=== PATIENT | male | born 1960 | race Caucasian/White ===

== ENCOUNTER 2020-12-23 18:21 | Inpatient (IN) ==
[2020-12-23] MEDS ORDERED: NOREPINEPHRINE/D5W 8 MG/508 ML IV ONE (18:36)
[2020-12-23] MEDS: Standard Conc 16mcg/mL; 8mg in 500mL IV SCH (18:42)
[2020-12-23] MEDS ORDERED: SODIUM CHLORIDE 0.9% 1000ML 1,000 ML IV SCH ×2 (18:45)
[2020-12-23 18:50] LABS: iSTAT Creatinine 1.3 mg/dl (0.6-1.3); iSTAT Hemoglobin 17.7 g/dl (14.0-18.0); iSTAT Ionized Calcium 1.1 mmol/l (1.12-1.32); iSTAT Potassium 2.8 mmol/L (3.3-5.0)
--- NOTE | 2020-12-23 18:50 | XRay Report ---
XR chest 1V portable HISTORY: 60 years-old Male s/p intubation acute respiratory failure COMPARISON: None TECHNIQUE: Portable supine AP view of the chest FINDINGS: Endotracheal tube overlies the midline, 4.6 cm superior to the paco. Moderate cardiomegaly. No pneu mothorax, or large pleural effusion. Pulmonary vascular congestion with reticular opacities. Ill-defi devan patchy bilateral airspace densities. Curvilinear subtle lucency is noted projecting over the righ t hemithorax. Bones appear grossly intact. IMPRESSION: 1. Endotracheal tube terminates 4.6 cm superior to the paco. 2. Cardiomegaly with pulmonary vascular congestion. 3. Patchy bilateral airspace opacities suspicious for pneumonia. 4. Subtle linear lucency overlying the right hemithorax is likely artifactual with pneumoperitoneum c onsidered less likely. This could be confirmed with a left lateral decubitus film of the abdomen. ACT 112: Negative or not required by law. The above report was generated using voice recognition software. It may contain grammatical, syntax o r spelling errors. Electronically signed by: Carlos Alberto Garay M.D. 12/23/2020 6:48 PM
--- NOTE | 2020-12-23 18:55 | Emergency Department Note ---
History of Present Illness General Chief Complaint: Cardiac Arrest/CPR Stated Complaint: POST CARDIAC ARREST Source: patient Mode of arrival: EMS Limitations: altered mental status and clinical acuity History of Present Illness This is a 60-year-old male who presents to the ED with a chief complaint of cardiac arrest. The patient had reportedly developed a severe headache around 5 PM today. It was on the left side of his head. The patient did have some nausea and vomiting at the onset of symptoms according to the . She states that after this he started to mumble. He seemed to be able to squeeze with his left hand but not his right side. He was then making snoring noises. EMS was called. Shortly after they arrived, the patient had loss of pulses and asystole. CPR as well as a supraglottic airway was initiated in addition to an interosseous line where 4 mg of IV epinephrine were pushed over a period of approximately 20 to 25 minutes until there was return of spontaneous circulation. The patient was then transported here. Home Medications Medication Instructions Recorded Confirmed Type aspirin [Aspir-Low] 81 mg PO DAILY 12/23/20 12/23/20 History Allergies Allergy/AdvReac Type Severity Reaction Status Date / Time No Known Allergies Allergy Unverified 12/23/20 20:07 Past Med/Surg History Medical History (Updated 12/23/20 @ 21:21 by Johny Austin DO) Hypertension Sleep apnea Social History (Updated 12/23/20 @ 18:51 by Johny Austin DO) marital status: Review of Systems A total of 10 systems reviewed and were otherwise negative Physical Exam Vital Signs: Vital Signs - 24 hr 12/23/20 18:30 Pulse Rate 67 Respiratory Rate 16 Respiratory Effort / Characteristics Mechanically Venti lated Blood Pressure 71/42 L Blood Pressure [place] n 51 Oxygen Delivery Me thod Ambu-Bag Mechanica l Vent Fraction of Inspir ed Oxygen 100 Sepsis Recent Feve r Within 48 Hours No Sepsis New/Unexpla ined Change in Men delvin Status No Sepsis Action Take n by Nursing No Action Required Physical Exam: CONSTITUTIONAL/VITAL SIGNS: Reviewed / noted above. GENERAL: Patient is being bagged by BVM and supraglottic airway upon arrival. INTEGUMENTARY: Warm, dry, and slightly pale. HEAD: Normocephalic. EYES: without scleral icterus or trauma. The pupils are midposition and nonreactive to light. ENT/OROPHARYNX: Supraglottic airway was in place upon his arrival to the ED. There is some vomitus in the airway. LYMPHADENOPATHY/NECK: Is supple. RESPIRATORY: Lungs diminished bilaterally CARDIOVASCULAR: Regular rate and rhythm. GI/ABDOMEN: Soft and obese. No organomegaly or pulsatile mass. No rebound or guarding. Normal bowel sounds. EXTREMITIES: Warm and well perfused. NEUROLOGICAL: The has neurologic response. MUSCULOSKELETAL: no muscle tone. TRIAGE NURSING DOCUMENTATION REVIEWED. Procedures ABG Interpretation ABG Interpretation 1: ABG Results: 7.1 Interpretation: abnormal, respiratory acidosis and metabolic acidosis Central Line Placement Right IJ: Time Out Performed: Yes Patient Placed on Monitor/Pulse Ox: Yes MD Prep: mask, gown and gloves Central Line Prep: Povidone-Iodine 1% Ultrasound Used for Placement: Yes Central Line Lumen Inserted: triple Post Procedure: sutured in place, good blood return, all ports aspirated, flushed, capped and sterile dressing applied Patient Tolerated Procedure: other (terminal/comfort care discussed with prior to xray being done. ) Complications: none Intubation Time out performed: Yes sedative: none Laryngoscope: fiber optic video scope ET Tube Size: 7.5 ET Tube Uncuffed: Yes Tube Secured Depth (cm): 26 Tube Secured Location: lips Tube Placement Confirmation: visualized tube passing through cords, equal breath sounds bilaterally, no breath sounds over epigastrium and confirmation by capnometry Patient Tolerated Procedure: well Intubation Complications: none Course Administered Medications Norepinephrine Bitartrate (Levophed/D5w) 8 mg in 508 mls @ 26.575 mls/hr IV .[id number] [facility]; Protocol Stop: 01/22/21 18:44 Last Admin: 12/23/20 18:42 Dose: 0.1 mcg/kg/min, 53.2 mls/hr Documented by: [id number] Cosigned by: [id number] Discontinued Medications Norepinephrine Bitartrate (Norepinephrine/D5w 8 Mg/508 Ml) Confirm Administered Dose 8 mg IV .STK-MED ONE Stop: 12/23/20 18:37 Last Admin: 12/23/20 18:41 Dose: 8 mg Documented by: [id number] Medical Decision Making Laboratory Data Result diagrams: 12/23/20 18:30 12/23/20 18:30 Imaging Data Radiologist's Impression: CT head/brain [facility] CLINICAL HISTORY: 60 years-old Male with unresponsive. Acutely unresponsive patient. TECHNIQUE: Multiple axial CT images of the head were obtained without contrast. A dose lowering technique was utilized adhering to the principles of ALARA. COMPARISON: None. FINDINGS: There is a large acute intraparenchymal hemorrhage within the posterior fossa centered within the left cerebellar hemisphere measures up to 5.4 x 4.6 cm. Large amount of associated edema surrounds the hemorrhage and crosses the midline extending into the right cerebellar hemisphere. There is effacement of the fourth ventricle with low-lying cerebellar tonsils. Mild prominence of the lateral and third ventricles out of proportion to the degree of atrophy. Patchy bilateral white matter hypodensities suggest chronic microvascular ischemic disease. There is diffuse blurring of the lopez-white interface. Hyperdensities within the bilateral nasal ganglia suggest senescent calcifications. No midline shift. No acute calvarial fracture. Mastoid air cells are clear. Moderate mucoperiosteal thickening of the right maxillary sinus. Polypoid mucosal thickening of the left maxillary sinus. Soft tissues and orbits are unremarkable. IMPRESSION: 1. Large intraparenchymal hematoma centered within the left cerebellar hemisphere crosses the midline and overall measures up to 5.4 cm. Large amount of associated edema is noted with effacement of the fourth ventricle and cerebellar tonsillar herniation. 2. Diffuse blurring of the lopez-white interface suggests hypoxicischemic brain injury. 3. Mild prominence of the lateral and third ventricles is suspicious for developing hydrocephalus. CT chest diagnostic [facility] CT DOSE: 2180.68 mGy.cm CLINICAL HISTORY: 60 years-old Male with s/p cardiac arrrest, hypoxia, ? aspiration. Acute hypoxia with cardiac arrest TECHNIQUE: Multiaxial CT images of the chest were performed without contrast. A dose lowering technique was utilized adhering to the principles of ALARA. COMPARISON: Chest radiograph of same day FINDINGS: Heterogeneous thyroid. No adenopathy. Moderate cardiomegaly without pe ricardial effusion. There is no thoracic aortic aneurysm. Endotracheal tube overlies the midline, 4.0 cm superior to the paco. There is no pneumothorax or pleural effusion. Diffuse bilateral pulmonary opacities include dependent dense consolidation, right greater than left within the upper and lower lobes with bilateral diffuse groundglass and reticular nodular opacities. Mild intralobular septal thickening. There is a 1.6 x 1.5 cm irregular nodular opacity with central lucency within the right upper lobe on image 101 series 6. Distended stomach. Hepatic steatosis. Mild pneumobilia. Mild cortical angulation of the anterolateral left third through sixth ribs. IMPRESSION: 1. Endotracheal tube terminates 4.0 cm superior to the paco. 2. Dependent right greater than left consolidation within the upper and lower lobes is suspicious for aspiration pneumonitis. 3. Extensive bilateral groundglass densities with intermixed reticular nodular opacities including an irregular centrally cavitary nodule within the right upper lobe measuring up to 1.6 cm. These findings are also on an infectious or inflammatory basis. 4. Cardiomegaly. 5. Hepatic steatosis. 6. Acute nondisplaced fractures of the anterolateral left third through sixth ribs. No pneumothorax. MDM Narrative Patient presents status post cardiac arrest. Prior to cardiac arrest the patient had a severe headache. This was followed by vomiting. Then by inability to use the right side. This was then followed by asystole that was resuscitated with CPR and epinephrine. Further details above. A CT scan of the brain shows a severe left cerebellar intraparenchymal hemorrhage with cerebellar tonsillar herniation as well as hypoxic ischemic brain injury. CT scan of the chest shows the endotracheal tube position as well as some evidence of consolidation and aspiration. The white blood count is 17,000. He is not anemic. ABG shows a pH of 7.12. PCO2 is 82. Creatinine is 1.62. Glucose is 234. Lactic acid level was 10.6. Liver function tests are slightly elevated. Troponin is 0.107. Covid test was negative. The patient was hypotensive and hypoxic when he arrived. He had an interosseous line placed. IVs were established by nursing staff. The patient did require norepinephrine for blood pressure support after IV fluids were administered. He was given 2 L of IV normal saline. Norepinephrine IV was started. The LMA type device placed by EMS was replaced with an endotracheal tube. The patient's hypoxia slowly improved. A right IJ central line was placed for the norepinephrine. I did speak with the radiologist about the CT scan report. I spoke with neurosurgery from [facility]. I spoke with Dr. Coley who informed me that the results of the tests as well as the patient's lack of any neurological life suggest brain damage and that the patient would likely be placed on hospice care after their evaluation. He was happy to accept the patient if the family desires to do so. I did talk with the about the patient's overall likely brain and poor outcome and the decided to make the patient comfort care. She did call her sons. They will not arrive for 4 to 5 hours. Impression & Plan Intracranial hemorrhage, Cardiac arrest, Elevated troponin, Brainstem herniation, Aspiration pneumonia, Metabolic acidosis, Admission for end of life care Critical Care Time Critical Care Time: Yes Total Critical Care Time: 140 I have personally spent 140 minutes of critical care time in the direct management of this patient. This includes bedside care, interpretation of diag nostic studies, and testing, discussion with consultants, patient, and family members, and other required patient management activities. This 140 minutes is in excess of all separately billable procedures. Discharge Plan Visit Data Chief Complaint: Cardiac Arrest/CPR Stated Complaint: POST CARDIAC ARREST ED Provider: Johny Austin Discharge Problem: Intracranial hemorrhage, Cardiac arrest, Elevated troponin, Brainstem herniation, Aspiration pneumonia, Metabolic acidosis, Admission for end of life care Patient Disposition: Admitted As Inpatient Forms Stand Alone Forms: My [facility] Prescriptions Prescriptions: No Action aspirin [Aspir-Low] 81 mg Tablet,Delayed Release (Dr/Ec) 81 mg PO DAILY RF: 0 Referrals Referrals: PCP,NO [Primary Care Provider] -
[2020-12-23 19:00] LABS: Hematocrit (blood only) 52.5 % (42-52); Hemoglobin 16.3 g/dL (14.0-18.0); Mean Corpuscular Hemoglobin 28.8 pg (25-34); Mean Corpuscular Volume 92.9 fL (80-100); Mean Platelet Volume 13.3 fL (7.4-10.4); Platelet Count 238 K/uL (130-400); RDW Coefficient of Variation 14.7 % (11.5-14.5); RDW Standard Deviation 49.7 fL (36.4-46.3); Red Blood Count 5.65 M/uL (4.7-6.1); White Blood Count 17.48 K/uL (4.8-10.8)
[2020-12-23 19:02] LABS: Base Excess VBG -7.9 mEq/L; Oxygen Saturation VBG 66.9 %; pH VBG 6.97 (7.36-7.41)
--- NOTE | 2020-12-23 19:10 | CT Scan Report ---
CT head/brain wo con CLINICAL HISTORY: 60 years-old Male with unresponsive. Acutely unresponsive patient. TECHNIQUE: Multiple axial CT images of the head were obtained without contrast. A dose lowering tech nique was utilized adhering to the principles of ALARA. COMPARISON: None. FINDINGS: There is a large acute intraparenchymal hemorrhage within the posterior fossa centered within the lef t cerebellar hemisphere measures up to 5.4 x 4.6 cm. Large amount of associated edema surrounds the h emorrhage and crosses the midline extending into the right cerebellar hemisphere. There is effacement of the fourth ventricle with low-lying cerebellar tonsils. Mild prominence of the lateral and third ventricles out of proportion to the degree of atrophy. Patch y bilateral white matter hypodensities suggest chronic microvascular ischemic disease. There is diffu se blurring of the lopez-white interface. Hyperdensities within the bilateral nasal ganglia suggest se nescent calcifications. No midline shift. No acute calvarial fracture. Mastoid air cells are clear. Moderate mucoperiosteal thickening of the r ight maxillary sinus. Polypoid mucosal thickening of the left maxillary sinus. Soft tissues and orbit s are unremarkable. IMPRESSION: 1. Large intraparenchymal hematoma centered within the left cerebellar hemisphere crosses the midline and overall measures up to 5.4 cm. Large amount of associated edema is noted with effacement of the fourth ventricle and cerebellar tonsillar herniation. 2. Diffuse blurring of the lopez-white interface suggests hypoxicischemic brain injury. 3. Mild prominence of the lateral and third ventricles is suspicious for developing hydrocephalus. Findings were discussed with Dr. Austin on 12/23/2020 at 7:05 PM. ACT 112: Negative or not required by law. The above report was generated using voice recognition software. It may contain grammatical, syntax o r spelling errors. Electronically signed by: Carlos Alberto Garay M.D. 12/23/2020 7:08 PM
[2020-12-23 19:12] LABS: INR 1.1 (0.9-1.1); Partial Thromboplastin Ratio 1.1; Partial Thromboplastin Time 28.1 Seconds (21.0-31.0); Prothrombin Time 10.9 Seconds (9.0-12.0)
[2020-12-23 19:27] LABS: Albumin Level 2.8 gm/dl (3.4-5.0); Calcium 8.6 mg/dl (8.5-10.1); Creatinine Clr Calc Pharmacy 67.3 ml/min; Est GFR (Non-African American) 45.8; Magnesium 2.9 mg/dl (1.8-2.4); Potassium 2.9 mmol/L (3.5-5.1)
[2020-12-23 19:29] LABS: Basophils # (auto) 0.06 K/uL (0-0.2); Basophils % (auto) 0.3 %; Eosinophils # (auto) 0.23 K/uL (0-0.5); Eosinophils % (auto) 1.3 %; Immature Granulocytes # (auto) 0.87 K/uL (0.00-0.02); Lymphocytes # (auto) 5.55 K/uL (1.2-3.4); Lymphocytes % (auto) 31.8 %; Monocytes # (auto) 1.05 K/uL (0.11-0.59); Neutrophils # (auto) 9.72 K/uL (1.4-6.5); Neutrophils % (auto) 55.6 %
--- NOTE | 2020-12-23 19:32 | CT Scan Report ---
CT chest diagnostic wo con CT DOSE: 2180.68 mGy.cm CLINICAL HISTORY: 60 years-old Male with s/p cardiac arrrest, hypoxia, ? aspiration. Acute hypoxia w ith cardiac arrest TECHNIQUE: Multiaxial CT images of the chest were performed without contrast. A dose lowering techni que was utilized adhering to the principles of ALARA. COMPARISON: Chest radiograph of same day FINDINGS: Heterogeneous thyroid. No adenopathy. Moderate cardiomegaly without pericardial effusion. T here is no thoracic aortic aneurysm. Endotracheal tube overlies the midline, 4.0 cm superior to the c rob. There is no pneumothorax or pleural effusion. Diffuse bilateral pulmonary opacities include de pendent dense consolidation, right greater than left within the upper and lower lobes with bilateral diffuse groundglass and reticular nodular opacities. Mild intralobular septal thickening. There is a 1.6 x 1.5 cm irregular nodular opacity with central lucency within the right upper lobe on image 101 series 6. Distended stomach. Hepatic steatosis. Mild pneumobilia. Mild cortical angulation of the anterolateral left third through sixth ribs. IMPRESSION: 1. Endotracheal tube terminates 4.0 cm superior to the paco. 2. Dependent right greater than left consolidation within the upper and lower lobes is suspicious for aspiration pneumonitis. 3. Extensive bilateral groundglass densities with intermixed reticular nodular opacities including an irregular centrally cavitary nodule within the right upper lobe measuring up to 1.6 cm. These findin gs are also on an infectious or inflammatory basis. 4. Cardiomegaly. 5. Hepatic steatosis. 6. Acute nondisplaced fractures of the anterolateral left third through sixth ribs. No pneumothorax. ACT 112: Negative or not required by law. Electronically signed by: Carlos Alberto Garay M.D. 12/23/2020 7:31 PM
[2020-12-23 19:48] LABS: Albumin Globulin Ratio 0.7 (0.9-2); Bilirubin,Total 0.2 mg/dl (0.2-1); Total Protein 6.8 gm/dl (6.4-8.2); Troponin I 0.107 ng/ml (0-0.045)
[2020-12-23 19:55] LABS: iSTAT Arterial Blood Gas HCO3 26 meg/L (19-24); iSTAT Arterial Blood Gas pCO2 82 mmHg (35-46); iSTAT Arterial Blood Gas pH 7.12 (7.35-7.45); iSTAT Arterial Blood Gas pO2 80 mmHg (80-95); iSTAT Carbon Dioxide 29 mmol/L (24-31); iSTAT Hematocrit 52 % (42-52); iSTAT Hemoglobin 17.7 g/dl (14.0-18.0); iSTAT Potassium 3.6 mmol/L (3.3-5.0); iSTAT Sodium 139 mmol/L (135-144)
--- NOTE | 2020-12-23 21:03 | Critical Care Consultation ---
Date of Consultation December 23, 2020 Assessment & Plan (1) Admitted to intensive care unit: 2100: [facility] Reason Critically Ill: 60-year-old male status post out of hospital cardiac arrest with ROSC who was found to have experienced acute intraparenchymal hemorrhage with brainstem herniation. Family declines transfer to higher level of care with neurosurgical capabilities. Goals of care focused for comfort with assessment from [facility] [employer] or possible organ procurement. NEURO - * [facility] ICU: Unable to assess. * Intraparenchymal hemorrhage with brainstem herniation: * Case/images reviewed w/ [facility]. [place] to be non-survivable condition at this point. After discussion w/ family, they would not wish for the patient to be transferred and would rater proceed w/ goals of comfort at this institution. * Patient's exam demonstrates unresponsive patient requiring no current sedation. Pupils are fixed and not responsive. No gag reflex. Grave CT findings with associated cardiac arrest with down time of ~20-25min. * I did have extensive conversation with family at bedside and explained limitations of this institution, particularly with out capability for neurosurgical intervention. Additionally, I did speak with them and reiterate that [facility] had suggested that upon arrival, the patient would be evaluated and likely they would proceed with palliative measures at that point. I did discuss that if the patient were to be admitted at this institution, we would only be able to offer goals of comfort aimed at peaceful passing. and son acknowledged this and would rather stay at this institution. * I did broach the subject regarding organ procurement evaluation from [facility]. is open conversation and is uncertain of the patient's organ donation status. She is comfortable with me reaching out to [facility] at this time. * 2100: I did personally contact [facility] regarding patient's condition. They did establish data engineer and report that the data engineer would be present at this institution at approximately 1 AM. * Upon [facility] assessment, we will proceed with their guidance versus family's wishes regarding ongoing management. CARDIAC/VASCULAR - * Out of Hospital Cardiac Arrest w/ ROSC: * Likely respiratorily mediated after large intraparenchymal hemorrhage with brainstem herniation. * Given grave CT findings and family wishes to proceed w/ DIALS INSPECTOR/[facility] evaluation, will defer ongoing cardiac assessment. * Will order formal cardiology consultation per [facility] request per protocol. * Currently requiring Levophed. * Monitor on telemetry. RESPIRATORY - * Respiratory failure: * Likely 2/2 neuro catastrophe. * Currently intubated. Will titrate down ventilator settings as tolerated. * Goals for terminal extubation versus [facility] recommendations for organ procurement. GI/NUTRITION - * NPO * OG in place. RENAL/LYTES - * ZACKERY: * Likely 2/2 hypoperfusion injury. * Continue w/ gentle IVF - * Vee in place - Strict I&Os. ENDO - * Hyperglycemia. * BSGs per unit protocol. ISS --> gtt per unit policy. HEME - * Stable H&H ID - * Initially held off on antibiotics pending progression to DIALS INSPECTOR. * Will add ABx per [facility] recommendation. LINES/IV ACCESS - * PIVs x2 * RIGHT IJ CVL * Vee * ET Tube * OG DVT PROPHYLAXIS - * Hold on Rx pending [facility] evaluation. * SCDs RESUSCITATION STATUS - * As discussed above. After extensive conversation with the patient's family at bedside, they would wish to proceed with comfort measures only after remaining siblings arrive. * Will discuss case with [facility] and proceed with their protocol/recommendations per discussion with family. I have personally spent 82 minutes of critical care time in the direct management of this patient. This is a life/limb threatening event. This includes time spent evaluating patient, direct bedside care, chart review, placing orders, interpretation of diagnostic studies, discussion with consultants, patient, and family members, as well as other required patient management activities. This time is exclusive of all separately billable procedures, and teaching time and separate from and in addition to any other critical care service time. Thank you for allowing us to participate in the care of this patient. Please refer to my attending physician's documentation for any further recommendations. (2) Intracranial hemorrhage: (3) Cardiac arrest: (4) Brainstem herniation: (5) Hypertension: (6) Sleep apnea: (7) Admission for end of life care: History of Present Illness History of Present Illness Patient is a 60-year-old male with a significant past medical history of hypertension and sleep apnea. Apparently, earlier in the afternoon, the patient complained of an intense headache. This occurred at approximately 5 PM. He developed associated nausea and vomiting. reports that patient began to mumble. There was concern for RIGHT-sided weakness. EMS was contacted and upon arrival, the patient was noted to be in cardiac arrest. CPR was started in the field and patient received a total of 4 mg IV epinephrine. ROSC was achieved after approximately 20 to 25 minutes. Upon arrival in the emergency department, the patient was formally intubated. CT of the head was obtained which demons trated a large intraparenchymal hemorrhage in the LEFT cerebellar hemisphere which crossed the midline measuring up to 5.4 cm with associated edema and cerebellar tonsillar herniation. Patient also was noted to have diffuse lopez- white interference suggestive of hypoxic ischemic brain injury. Patient was also noted to develop hydrocephalus as well. [facility] was contacted for possible transfer. Neurosurgery did evaluate imaging studies and stated this was likely not a survivable condition and recommendations would be for palliative care upon arrival in their facility. Family was offered transfer to tertiary care versus transitioning the patient to comfort measures after all family members were present and able to be with their father. Family elected against transfer and would rather proceed with comfort focused goals. Upon evaluation in the emergency department, the patient is intubated and unresponsive. I did have an extensive conversation with the patient's and son at bedside. I did explain limitations at our institution including lack of neurosurgery. I did state that if they did wish to proceed with being admitted to our facility, that goals of care would be geared towards comfort measures aimed at peaceful passing. and son are in agreement and would rather proceed with comfort measures after 2 other brothers are able to say their goodbyes. I did broach the subject of organ procurement via [facility]. is comfortable with me contacting [employer] and open to discussion, however she reports that she is uncertain of his organ donation status. Allergies Allergy/AdvReac Type Severity Reaction Status Date / Time No Known Allergies Allergy Unverified 12/23/20 20:07 Home Medications Medication Instructions Recorded Confirmed Type aspirin [Aspir-Low] 81 mg PO DAILY 12/23/20 12/23/20 History Patient History Medical History Hypertension Sleep apnea Social History Smoking Status: Current every day smoker Do You Dip or Chew Tobacco: No; Hx Alcohol Use: Yes Alcohol type: hard liquor Hx Substance Use: No Preferred Language: Telugu Communication Ability: Unable Poured Pipe Maker Required: No Beliefs That Will Affect Care: None marital status: Current Living Situation: Spouse Other Information That Helps Us Care for You: No Feels Safe at Home: No Is there a partner from a previous relationship who is making you feel unsafe now?: No Any Concerns about Your Family Situation: No Would You Like to Speak to Someone About Your Situation: No Assistive Devices: None Review of Systems Review of Systems: Unobtainable due to cognitive status Physical Exam Physical Exam: VITAL SIGNS - Vital signs and nursing notes were reviewed. GENERAL - 60-year-old male appearing his stated age who is in no acute distress. Intubated in nonresponsive. SKIN - Without rashes. HEAD - NC/AT. EYES - Pupils fixed an non-reactive. EARS - No deformities of external structures noted on gross examination bilaterally. NOSE - Midline and without cyanosis. No epistaxis or purulent drainage noted. MOUTH/OROPHARYNX - ET Tube in place. Without perioral cyanosis. NECK - Supple to palpation. LUNGS - Chest wall symmetric without accessory muscle use, intercostals retractions, or central cyanosis. Normal vesicular breath sounds CTA B/L. No wheezes, rales, or rhonchi appreciated. CARDIAC - RRR with S1/S2. No murmur, rubs, or gallops appreciated. ABDOMEN - Abdominal contour obese without pulsations or visible masses. BS hypoactive all four quadrants. EXTREMITIES - No clubbing or peripheral cyanosis. No pretibial edema present. +3/5 radial and dorsalis pedis pulses palpated throughout. Flaccid extremities. NEUROLOGIC - Pupils fixed and non-reactive. No gag reflex. No response to painful stimuli. Results & Data Results & Data ([facility]) Vital Signs (Past 12 Hours) Vital Signs Pulse Resp BP Pulse Ox 12/23/20 20:55 102 H 109/78 94 12/23/20 20:50 102 H 106/79 92 12/23/20 20:45 102 H 108/76 92 12/23/20 20:40 102 H 112/77 91 12/23/20 20:35 103 H 107/75 92 12/23/20 20:30 104 H 87/67 L 92 12/23/20 20:25 102 H 100/70 93 12/23/20 20:20 102 H 98/71 L 93 12/23/20 20:15 103 H 97/69 L 93 12/23/20 20:10 103 H 96/68 L 92 12/23/20 20:05 105 H 98/70 L 92 12/23/20 19:58 22 12/23/20 19:55 107 H 95/66 L 92 12/23/20 19:50 108 H 98/66 L 91 12/23/20 19:45 108 H 91/66 L 91 12/23/20 19:40 109 H 90/66 L 91 12/23/20 19:35 110 H 92/68 L 90 12/23/20 19:31 112 H 99/68 L 90 12/23/20 19:20 111 H 102/67 90 12/23/20 19:15 113 H 109/70 90 12/23/20 19:12 88 L 12/23/20 19:10 117 H 135/91 90 12/23/20 19:05 115 H 104/72 90 12/23/20 19:02 117 H 102/73 90 12/23/20 18:40 96 H 78/60 L 84 L 12/23/20 18:34 67 82/38 L 79 L 12/23/20 18:33 111 H 18 87 L 12/23/20 18:30 68 16 71/47 L 77 L Coding Level of Care Code Critical Care 1st 30-74 mins Diagnoses Admitted to intensive care unit Z78.9 Intracranial hemorrhage I62.9 Cardiac arrest I46.9 Brainstem herniation G93.5 Hypertension I10 Sleep apnea G47.30 Admission for end of life care Z51.5 Time Spent (min) 82
--- NOTE | 2020-12-23 21:12 | History & Physical Report ---
Date of Service December 23, 2020 Assessment & Plan (1) Admission for end of life care: Admission for end-of-life care to intensive care unit/status post cardiac arrest status post intracranial hemorrhage with brainstem herniation- Consult civil design specialist team. Continue intubation until family members all arrive from out of town. [employer] [facility] has been consulted. Continue Levophed and IV fluids. Remaining orders per ICU Present on Admission?: Yes (2) Admitted to intensive care unit: (3) Intracranial hemorrhage: (4) Cardiac arrest: (5) Elevated troponin: (6) Brainstem herniation: (7) Aspiration pneumonia: (8) Metabolic acidosis: History of Present Illness Chief Complaint: The patient presented to the emergency department after out of facility cardiac arrest, that began with symptoms around 5 PM of a severe headache, nausea and vomiting, and then the patient began to mumble. Primary Care Provider: NO PCP The patient is a 60-year-old male with no known previous past medical history, who presented to the emergency department following a cardiac arrest in the field, as noted above. EMS was called, and was found to have a loss of pulse and asystole. CPR was begun and a supraglottic airway was established and an intraosseous line was placed. The patient was given 4 mg of epinephrine IV until there was return of spontaneous circulation, and then the patient was transported to the emergency department. Work-up in the emergency department included a CT scan of the head, which showed intracranial hemorrhage and brainstem herniation. [facility] was contacted, and felt that intervention would not be of value, and recommended conservative measures. Emergency department contacted the family, and medicine has been consulted to admit the intubated patient to the ICU for comfort measures, while waiting for remainder family to arrive, and [facility] has been consulted. Allergies Allergy/AdvReac Type Severity Reaction Status Date / Time No Known Allergies Allergy Unverified 12/23/20 20:07 Home Medications Medication Instructions Recorded Confirmed Type aspirin [Aspir-Low] 81 mg PO DAILY 12/23/20 12/23/20 History Past Med/Surg History Medical History (Updated 12/23/20 @ 21:21 by Johny Austin DO) Hypertension Sleep apnea Social History (Updated 12/23/20 @ 18:51 by Johny Austin DO) Smoking Status: Current every day smoker Do You Dip or Chew Tobacco: No; Hx Alcohol Use: Yes Alcohol type: hard liquor Hx Substance Use: No Preferred Language: [place] Communication Ability: Unable Feed Adviser Required: No Beliefs That Will Affect Care: None marital status: Current Living Situation: Spouse Other Information That Helps Us Care for You: No Feels Safe at Home: No Is there a partner from a previous relationship who is making you feel unsafe now?: No Any Concerns about Your Family Situation: No Would You Like to Speak to Someone About Your Situation: No Assistive Devices: None Review of Systems Review of Systems: Unobtainable due to reduced consciousness Physical Exam Physical Exam: The patient is intubated and nonresponsive HEENT--PERRL, EOMI, mucous membranes and oropharynx dry. Neck--supple. No JVD. No bruits. Thyroid normal, trachea midline, no adenopathy. Heart--normal S1 and S2. No murmurs, rubs or gallops. Lungs--coarse breath sounds bilaterally. Abdomen--normal bowel sounds and soft. Nontender. Nondistended. Morbidly obese Extremities--no cyanosis or clubbing. No edema. Dermatologic--normal skin turgor, normal color, no abnormal lymph nodes, no rash. Neurologic--limited exam Rheumatologic--limited exam Psychiatric--intubated nonresponsive Results & Data Results & Data ([facility]) Vital Signs (Past 12 Hours) Vital Signs Pulse Resp BP Pulse Ox 12/23/20 21:05 102 H 115/82 95 12/23/20 20:55 102 H 109/78 94 12/23/20 20:50 102 H 106/79 92 12/23/20 20:45 102 H 108/76 92 12/23/20 20:40 102 H 112/77 91 12/23/20 20:35 103 H 107/75 92 12/23/20 20:30 104 H 87/67 L 92 12/23/20 20:25 102 H 100/70 93 12/23/20 20:20 102 H 98/71 L 93 12/23/20 20:15 103 H 97/69 L 93 12/23/20 20:10 103 H 96/68 L 92 12/23/20 20:05 105 H 98/70 L 92 12/23/20 19:58 22 12/23/20 19:55 107 H 95/66 L 92 12/23/20 19:50 108 H 98/66 L 91 12/23/20 19:45 108 H 91/66 L 91 12/23/20 19:40 109 H 90/66 L 91 12/23/20 19:35 110 H 92/68 L 90 12/23/20 19:31 112 H 99/68 L 90 12/23/20 19:20 111 H 102/67 90 12/23/20 19:15 113 H 109/70 90 12/23/20 19:12 88 L 12/23/20 19:10 117 H 135/91 90 12/23/20 19:05 115 H 104/72 90 12/23/20 19:02 117 H 102/73 90 12/23/20 18:40 96 H 78/60 L 84 L 12/23/20 18:34 67 82/38 L 79 L 12/23/20 18:33 111 H 18 87 L 12/23/20 18:30 68 16 71/47 L 77 L Laboratory Results Laboratory Results WBC 35.49 K/uL (4.8-10.8) H* 12/24/20 04:23 RBC 5.74 M/uL (4.7-6.1) 12/24/20 04:23 Hgb 16.7 g/dL (14.0-18.0) 12/24/20 04:23 POC Hgb 17.7 g/dl (14.0-18.0) 12/24/20 04:04 Hct 50.6 % (42-52) 12/24/20 04:23 POC Hct 52 % (42-52) 12/24/20 04:04 MCV 88.2 fL (80-100) 12/24/20 04:23 MCH 29.1 pg (25-34) 12/24/20 04:23 MCHC 33.0 g/dL (32-36) 12/24/20 04:23 RDW Std Deviation 47.3 fL (36.4-46.3) H 12/24/20 04:23 RDW Coeff of Kev 14.7 % (11.5-14.5) H 12/24/20 04:23 Plt Count 246 K/uL (130-400) 12/24/20 04:23 MPV 12.2 fL (7.4-10.4) H 12/24/20 04:23 Immature Gran % (Auto) 1.0 % 12/23/20 22:51 Neut % (Auto) 89.1 % 12/23/20 22:51 Lymph % (Auto) 6.8 % 12/23/20 22:51 [place] % (Auto) 2.9 % 12/23/20 22:51 Eos % (Auto) 0.1 % 12/23/20 22:51 Baso % (Auto) 0.1 % 12/23/20 22:51 Neut # (Auto) 32.51 K/uL (1.4-6.5) H 12/23/20 22:51 Lymph # (Auto) 2.49 K/uL (1.2-3.4) 12/23/20 22:51 [place] # (Auto) 1.05 K/uL (0.11-0.59) H 12/23/20 22:51 Eos # (Auto) 0.04 K/uL (0-0.5) 12/23/20 22:51 Baso # (Auto) 0.04 K/uL (0-0.2) 12/23/20 22:51 Immature Gran # (Auto) 0.38 K/uL (0.00-0.02) H 12/23/20 22:51 PT 10.9 Seconds (9.0-12.0) 12/23/20 14:30 INR 1.1 (0.9-1.1) 12/23/20 14:30 APTT 24.8 Seconds (21.0-31.0) 12/24/20 04:23 PTT Ratio 0.9 12/24/20 04:23 Sample Site Art Line 12/24/20 04:04 POC pH 7.39 (7.35-7.45) 12/24/20 04:04 POC pCO2 44 mmHg (35-46) 12/24/20 04:04 POC pO2 242 mmHg (80-95) H 12/24/20 04:04 POC HCO3 27 ashley/L (19-24) H 12/24/20 04:04 POC Total CO2 28 mmol/L (24-31) 12/24/20 04:04 POC Base Excess 2.0 ashley/L (-9-1.8) H 12/24/20 04:04 ABG pH (Temp Correct) 7.394 (7.35-7.45) 12/24/20 04:04 ABG pCO2 (Temp Corrct 44 mmHg (35-46) 12/24/20 04:04 POC ABG pO2 at Pt Temp 240 12/24/20 04:04 POC ABG O2 Sat 100.0 % (90-95) H 12/24/20 04:04 Piotr Test NA 12/24/20 04:04 VBG pH 6.97 (7.36-7.41) L 12/23/20 18:30 VBG pCO2 124 mmHg (38-50) H 12/23/20 18:30 VBG pO2 49 mmHg 12/23/20 18:30 VBG HCO3 28 mmol/L 12/23/20 18:30 VBG O2 Saturation 66.9 % 12/23/20 18:30 VBG Base Excess -7.9 mEq/L 12/23/20 18:30 Barometric Pressure 724.9 mm/Hg 12/23/20 18:30 O2 Delivery Device Ventilator 12/24/20 04:04 POC O2 Rate 24 12/24/20 04:04 Minute Ventilation 12.0 12/24/20 04:04 POC FiO2 100 % 12/24/20 04:04 Tidal Volume 500 12/24/20 04:04 PEEP 5 12/24/20 04:04 POC Sodium 140 mmol/L (135-144) 12/24/20 04:04 Sodium 139 mmol/L (136-145) 12/23/20 22:51 POC Potassium 3.7 mmol/L (3.3-5.0) 12/24/20 04:04 Potassium 4.1 mmol/L (3.5-5.1) D 12/23/20 22:51 POC Chloride 98 mmol/L (101-112) L 12/23/20 18:37 Chloride 105 mmol/L (98-107) 12/23/20 22:51 Carbon Dioxide 26 mmol/L (21-32) 12/23/20 22:51 POC Total CO2 27 mmol/L (24-31) 12/23/20 18:37 Anion Gap 8.0 (3-11) 12/23/20 22:51 POC Anion Gap 20.0 mmol/L (16-25) 12/23/20 18:37 POC BUN 16 mg/dl (7-18) 12/23/20 18:37 BUN 18 mg/dl (7-18) 12/23/20 22:51 Creatinine 1.73 mg/dl (0.6-1.4) H 12/23/20 22:51 POC Creatinine 1.3 mg/dl (0.6-1.3) 12/23/20 18:37 Est Cr Clr Drug Dosing 63.0 ml/min 12/23/20 22:51 Est GFR ( Amer) 49.0 12/23/20 22:51 Est GFR (Non-Af Amer) 42.3 12/23/20 22:51 BUN/Creatinine Ratio 10.6 (10-20) 12/23/20 22:51 Glucose 246 mg/dl (70-99) H 12/23/20 22:51 POC Glucose (other) 145 mg/dl (70-99) H 12/24/20 04:32 Lactate 4.8 mmol/L (0.4-2.0) H* 12/23/20 20:23 Calcium 8.5 mg/dl (8.5-10.1) 12/23/20 22:51 POC Ioniz Calcium Sukhdeep 1.10 mmol/l (1.12-1.32) L 12/23/20 18:37 Phosphorus 4.8 mg/dl (2.5-4.9) 12/23/20 22:51 Magnesium 2.2 mg/dl (1.8-2.4) 12/23/20 22:51 Total Bilirubin 0.5 mg/dl (0.2-1) 12/23/20 22:51 Direct Bilirubin 0.2 mg/dl (0-0.2) 12/23/20 22:51 AST 253 U/L (15-37) H 12/23/20 22:51 ALT 279 U/L (12-78) H 12/23/20 22:51 Alkaline Phosphatase 130 U/L (45-117) H 12/23/20 22:51 Troponin I 0.107 ng/ml (0-0.045) H* 12/23/20 18:30 Total Protein 7.2 gm/dl (6.4-8.2) 12/23/20 22:51 Albumin 3.0 gm/dl (3.4-5.0) L 12/23/20 22:51 Globulin 4.0 gm/dl (2.5-4.0) 12/23/20 18:30 Albumin/Globulin Ratio 0.7 (0.9-2) L 12/23/20 18:30 Procalcitonin 0.15 ng/ml (0-0.5) 12/23/20 14:30 Nasal Screen MRSA (PCR) Negative (Negative) 12/23/20 Unknown COVID-19 Eval Order Covid19 [facility]Now [facility] 12/23/20 18:40 SARS-CoV-2, RNA, NAAT NEGATIVE (NEGATIVE) 12/23/20 18:40 Blood Type O Positive 12/23/20 18:30 Antibody Screen NEGATIVE 12/23/20 18:30 Crossmatch See Detail 12/23/20 18:30 Diagnostic Findings [facility], [id number] XRay Report Patient: BENI TORRESAdmit Date: 12/23/20MR#: [id number]: [address] [facility] ID:[id number]: Date: [address] [place] [address] Zip: [place], [place] [address]Hpx: 60Location: EDSex: MRoom/Bed:Att Phy:Diagnosis: POST CARDIAC ARRESTPri Phy: PCPRadharvice Date: 12/23/20Fam Phy:Interpreting Phy: Lucho GarayAdmit Phy: Ordering Phy: Johny Austin D.O. cc: ~ XR chest 1V portable HISTORY: 60 years-old Male s/p intubation acute respiratory failure COMPARISON: None TECHNIQUE: Portable supine AP view of the chest FINDINGS: Endotracheal tube overlies the midline, 4.6 cm superior to the paco. Moderate cardiomegaly. No pneumothorax, or large pleural effusion. Pulmonary vascular congestion with reticular opacities. Ill-defined patchy bilateral airspace densities. Curvilinear subtle lucency is noted projecting over the right hemithorax. Bones appear grossly intact. IMPRESSION: 1. Endotracheal tube terminates 4.6 cm superior to the paco. 2. Cardiomegaly with pulmonary vascular congestion. 3. Patchy bilateral airspace opacities suspicious for pneumonia. 4. Subtle linear lucency overlying the right hemithorax is likely artifactual with pneumoperitoneum considered less likely. This could be confirmed with a left lateral decubitus film of the abdomen. ACT 112: Negative or not required by law. The above report was generated using voice recognition software. It may contain grammatical, syntax or spelling errors. Electronically signed by: Carlos Alberto Garay M.D. 12/23/2020 6:48 PM Dictated: 12/23/201845Transcribed: 12/23/201845 [place], [phone] CT Scan Report Patient: BENI TORRESAdmit Date: 12/23/20#: [id number]: [address] STEWARTAcct ID:[id number]: Date: 1960[facility] Zip: [place], [place] [address]Klw: 60Location: EDSex: MRoom/Bed:Att Phy:Diagnosis: POST CARDIAC ARRESTPri Phy: Radha CHUrvice Date: 12/23/20Fa Phy:Interpreting Phy: Lucho GarayAdmit Phy: Ordering Phy: Johny Austin D.O. cc: ~ CT head/brain wo con CLINICAL HISTORY: 60 years-old Male with unresponsive. Acutely unresponsive patient. TECHNIQUE: Multiple axial CT images of the head were obtained without contrast. A dose lowering technique was utilized adhering to the principles of ALARA. COMPARISON: None. FINDINGS: There is a large acute intraparenchymal hemorrhage within the posterior fossa centered within the left cerebellar hemisphere measures up to 5.4 x 4.6 cm. Large amount of associated edema surrounds the hemorrhage and crosses the midline extending into the right cerebellar hemisphere. There is effacement of the fourth ventricle with low-lying cerebellar tonsils. Mild prominence of the lateral and third ventricles out of proportion to the degree of atrophy. Patchy bilateral white matter hypodensities suggest chronic microvascular ischemic disease. There is diffuse blurring of the lopez-white interface. Hyperdensities within the bilateral nasal ganglia suggest senescent calcifications. No midline shift. No acute calvarial fracture. Mastoid air cells are clear. Moderate mucoperiosteal thickening of the right maxillary sinus. Polypoid mucosal thickening of the left maxillary sinus. Soft tissues and orbits are unremarkable. IMPRESSION: 1. Large intraparenchymal hematoma centered within the left cerebellar hemisphere crosses the midline and overall measures up to 5.4 cm. Large amount of associated edema is noted with effacement of the fourth ventricle and cerebellar tonsillar herniation. 2. Diffuse blurring of the lopez-white interface suggests hypoxicischemic brain injury. 3. Mild prominence of the lateral and third ventricles is suspicious for developing hydrocephalus. Findings were discussed with Dr. Austin on 12/23/2020 at 7:05 PM. ACT 112: Negative or not required by law. The above report was generated using voice recognition software. It may contain grammatical, syntax or spelling errors. Electronically signed by: Carlos Alberto Garay M.D. 12/23/2020 7:08 PM Dictated: 12/23/201901Transcribed: 12/23/201901 [facility], [id number] CT Scan Report Patient: BENI TORRESAdmit Date: 12/23/20#: [id number]: [id number] [facility] ID:[id number]: Date: [address] [place] [address] Zip: [place], [place] [address]Cuf: 60Location: EDSex: MRoom/Bed:Att Phy:Diagnosis: POST CARDIAC ARRESTPri Phy: PCP,NOService Date: 12/23/20Fa Phy:Interpreting Phy: Lucho GarayAdmit Phy: Ordering Phy: Johny Austin D.O. cc: ~ CT chest diagnostic wo con CT DOSE: 2180.68 mGy.cm CLINICAL HISTORY: 60 years-old Male with s/p cardiac arrrest, hypoxia, ? aspiration. Acute hypoxia with cardiac arrest TECHNIQUE: Multiaxial CT images of the chest were performed without contrast. A dose lowering technique was utilized adhering to the principles of ALARA. COMPARISON: Chest radiograph of same day FINDINGS: Heterogeneous thyroid. No adenopathy. Moderate cardiomegaly without pericardial effusion. There is no thoracic aortic aneurysm. Endotracheal tube overlies the midline, 4.0 cm superior to the paco. There is no pneumothorax or pleural effusion. Diffuse bilateral pulmonary opacities include dependent dense consolidation, right greater than left within the upper and lower lobes with bilateral diffuse groundglass and reticular nodular opacities. Mild intralobular septal thickening. There is a 1.6 x 1.5 cm irregular nodular opacity with central lucency within the right upper lobe on image 101 series 6. Distended stomach. Hepatic steatosis. Mild pneumobilia. Mild cortical angulation of the anterolateral left third through sixth ribs. IMPRESSION: 1. Endotracheal tube terminates 4.0 cm superior to the paco. 2. Dependent right greater than left consolidation within the upper and lower lobes is suspicious for aspiration pneumonitis. 3. Extensive bilateral groundglass densities with intermixed reticular nodular opacities including an irregular centrally cavitary nodule within the right upper lobe measuring up to 1.6 cm. These findings are also on an infectious or inflammatory basis. 4. Cardiomegaly. 5. Hepatic steatosis. 6. Acute nondisplaced fractures of the anterolateral left third through sixth ribs. No pneumothorax. ACT 112: Negative or not required by law. Electronically signed by: Carlos Alberto Garay M.D. 12/23/2020 7:31 PM Dictated: 12/23/201924Transcribed: 12/23/201924 Code Status & VTE Plan Code Status DO NOT RESUSCITATE VTE Prophylaxis Plan VTE Prophylaxis will be ordered: Yes Critical Care Time Critical Care Time: Yes Total Critical Care Time: 45 PG Care Time/CCT Total # of Minutes Spent Total Time Spent with Patient: Total time spent is greater than 50% in coordination of care (as documented) at patient's floor/unit and/or counseling patient: Critical Care Time: Yes Total Critical Care Time: 45 Coding Level of Care Code 64239 Initial Inpt Care Lvl 3 Diagnoses Admission for end of life care Z51.5 Admitted to intensive care unit Z78.9 Intracranial hemorrhage I62.9 Cardiac arrest I46.9 Elevated troponin R77.8 Brainstem herniation G93.5 Aspiration pneumonia J69.0 Metabolic acidosis E87.2 Additional Codes Critical Care Time - Critical Care Time: Yes ([id number]) Time Spent (min) 45
[2020-12-23] MEDS ORDERED: STAT IV Infusion **Titration per Protocol STA (22:10)
[2020-12-23] MEDS ORDERED: ICU PROTOCOL FOR HYPERGLYCEMIA PRN (22:10)
[2020-12-23] MEDS ORDERED: NOREPINEPHRINE/D5W 8 MG/508 ML BAG IV SCH (22:10)
[2020-12-23] MEDS ORDERED: ALBUT/IPRATROP 3MG/0.5MG NEB 3 ML VIAL INH PRN (22:10)
[2020-12-23] MEDS: NSS + 20MEQ KCL 20 MEQ/1,000 ML BAG IV SCH (22:33)
[2020-12-23] MEDS: FAMOTIDINE 20 MG in SYRINGE 3 ML IV SCH (22:35)
[2020-12-23 22:41] LABS: iSTAT Allen Test Pass; iSTAT Art Bld Gas pCO2 Correct 55 mmHg (35-46); iSTAT Art Bld Gas pH Corrected 7.295 (7.35-7.45); iSTAT Arterial Blood Gas HCO3 28 meg/L (19-24); iSTAT Arterial Blood Gas pCO2 63 mmHg (35-46); iSTAT Arterial Blood Gas pH 7.25 (7.35-7.45); iSTAT Arterial Blood Gas pO2 93 mmHg (80-95); iSTAT Arterial Blood Gas pO2 C 76; iSTAT Carbon Dioxide 30 mmol/L (24-31); iSTAT FiO2 90 %; iSTAT Hematocrit 56 % (42-52); iSTAT Site R Radial; iSTAT Sodium 136 mmol/L (135-144)
[2020-12-23 23:28] LABS: BUN Creatinine Ratio 10.6 (10-20); Bilirubin Direct 0.2 mg/dl (0-0.2); Bilirubin,Total 0.5 mg/dl (0.2-1); Calcium 8.5 mg/dl (8.5-10.1); Est GFR (Non-African American) 42.3; Magnesium 2.2 mg/dl (1.8-2.4); Phosphorus 4.8 mg/dl (2.5-4.9); Total Protein 7.2 gm/dl (6.4-8.2)
[2020-12-23 23:30] LABS: Hematocrit (blood only) 54.4 % (42-52); Hemoglobin 17.8 g/dL (14.0-18.0); Mean Corpuscular Hemoglobin 29.4 pg (25-34); Mean Corpuscular Hgb Conc 32.7 g/dL (32-36); Mean Corpuscular Volume 89.8 fL (80-100); Mean Platelet Volume 12.6 fL (7.4-10.4); Platelet Count 226 K/uL (130-400); RDW Coefficient of Variation 14.7 % (11.5-14.5); RDW Standard Deviation 48.4 fL (36.4-46.3); Red Blood Count 6.06 M/uL (4.7-6.1); White Blood Count 36.51 K/uL (4.8-10.8)
[2020-12-23 23:54] LABS: Potassium 4.1 mmol/L (3.5-5.1)
[2020-12-24] MEDS ORDERED: CARBOHYDRATES FOR HYPOGLYCEMIA PO PRN (00:15)
[2020-12-24] MEDS ORDERED: INSULIN REGULAR 250 UNITS in SODIUM CHLORIDE 0.9% 247.5 ML IV SCH (00:15)
[2020-12-24] MEDS ORDERED: GLUCAGON FOR INJ 1 MG VIAL IM PRN (00:15)
[2020-12-24] MEDS ORDERED: NovoLIN-R BOLUS FROM BAG IV ONE (00:15)
[2020-12-24] MEDS ORDERED: GLUCOSE 40% GEL 15 GM TUBE PO PRN (00:15)
[2020-12-24] MEDS ORDERED: GLUCOSE 10 TABS/TUBE PO PRN (00:15)
[2020-12-24] MEDS ORDERED: DEXTROSE 50% 50 ML SYRINGE IV PRN (00:15)
[2020-12-24] MEDS ORDERED: PHARMACY GLYCEMIC MGMT CONSULT PRN ×2 (00:17→01:48)
[2020-12-24 00:22] LABS: Basophils # (auto) 0.04 K/uL (0-0.2); Basophils % (auto) 0.1 %; Eosinophils # (auto) 0.04 K/uL (0-0.5); Eosinophils % (auto) 0.1 %; Immature Granulocytes # (auto) 0.38 K/uL (0.00-0.02); Lymphocytes # (auto) 2.49 K/uL (1.2-3.4); Lymphocytes % (auto) 6.8 %; Monocytes # (auto) 1.05 K/uL (0.11-0.59); Monocytes % (auto) 2.9 %; Neutrophils # (auto) 32.51 K/uL (1.4-6.5); Neutrophils % (auto) 89.1 %
[2020-12-24] MEDS ORDERED: SODIUM CHLORIDE 0.9% 250 ML IV PRN (03:03)
[2020-12-24] MEDS ORDERED: ceFAZolin 1000MG 1,000 MG/7.5 ML SYR IV SCH (04:00)
--- NOTE | 2020-12-24 04:00 | Procedure Note ---
Procedure Note Date of Service December 24, 2020 Procedure: Arterial Line Placement Attending: Dr. Michele APC: Ronaldo Waldron PA-C Indication: Monitoring on Pressors Anesthesia: None Verbal consent was obtained via the patient's for need for close hemodynamic monitoring and the patient who will be evaluated by [facility] for organ procurement. This is a required procedure per [facility] recommendation. Patient comfortable with proceeding emergently. A time-out was completed verifying correct patient, procedure, site, pos itioning, and implant(s) or special equipment if applicable. Allens test was performed to ensure adequate perfusion. Patients LEFT wrist was prepped and draped in the usual sterile fashion. Ultrasound guidance was used to aid needle placement. A 20g Arrow arterial line was introduced into the LEFT Radial artery. Catheter was threaded, and the needle was removed with appropriate blood return. Good waveform was observed. The patient tolerated the procedure well. Confirmation of placement with ultrasound. Blood Loss: Minimal Complications: None Procedural Ultrasound Guidance: Procedure Date: 12/24/2020 Indication: Pressors, Labs, ABGs Attending: Dr. Michele APC: Ronaldo Waldron PA-C Artery Identified: YES Line confirmed in Artery with ultrasound: YES Complications: NONE Patient tolerated procedure: WELL Coding CPT Codes Tubes, Drains, and Vasc Access - Tubes, Drains, and Vasc Access: [id number] Place Catheter In Artery ([id number]) [facility] [place] Codes (Charges) Tubes, Drains, and Vasc Access Procedure 1: Tubes, Drains, and Vasc Access: [id number] Place Catheter In Artery
[2020-12-24] MEDS: Standard Conc 16mcg/mL; 8mg in 500mL IV SCH (04:09)
[2020-12-24 04:22] LABS: iSTAT Art Bld Gas pCO2 Correct 44 mmHg (35-46); iSTAT Art Bld Gas pH Corrected 7.394 (7.35-7.45); iSTAT Arterial Blood Gas HCO3 27 meg/L (19-24); iSTAT Arterial Blood Gas pCO2 44 mmHg (35-46); iSTAT Arterial Blood Gas pH 7.39 (7.35-7.45); iSTAT Arterial Blood Gas pO2 242 mmHg (80-95); iSTAT Arterial Blood Gas pO2 C 240; iSTAT Carbon Dioxide 28 mmol/L (24-31); iSTAT FiO2 100 %; iSTAT Hematocrit 52 % (42-52); iSTAT Hemoglobin 17.7 g/dl (14.0-18.0); iSTAT Potassium 3.7 mmol/L (3.3-5.0); iSTAT Site Art Line; iSTAT Sodium 140 mmol/L (135-144)
[2020-12-24 04:38] LABS: Hematocrit (blood only) 50.6 % (42-52); Hemoglobin 16.7 g/dL (14.0-18.0); Mean Corpuscular Hemoglobin 29.1 pg (25-34); Mean Corpuscular Volume 88.2 fL (80-100); Mean Platelet Volume 12.2 fL (7.4-10.4); Platelet Count 246 K/uL (130-400); RDW Coefficient of Variation 14.7 % (11.5-14.5); RDW Standard Deviation 47.3 fL (36.4-46.3); Red Blood Count 5.74 M/uL (4.7-6.1); White Blood Count 35.49 K/uL (4.8-10.8)
[2020-12-24 04:44] LABS: Partial Thromboplastin Ratio 0.9; Partial Thromboplastin Time 24.8 Seconds (21.0-31.0)
[2020-12-24 05:02] LABS: Alanine Aminotransferase 229 U/L (12-78); Albumin Level 2.7 gm/dl (3.4-5.0); Amylase 95 U/L (25-115); Aspartate Aminotransferase 219 U/L (15-37); BUN Creatinine Ratio 9.8 (10-20); Bilirubin Direct 0.1 mg/dl (0-0.2); Blood Urea Nitrogen 23 mg/dl (7-18); Calcium 8.2 mg/dl (8.5-10.1); Carbon Dioxide 26 mmol/L (21-32); Chloride 110 mmol/L (98-107); Creatinine Clr Calc Pharmacy 47.2 ml/min; Est GFR (African American) 34.5; Est GFR (Non-African American) 29.8; Glucose 145 mg/dl (70-99); Lipase 111 U/L (73-393); Magnesium 2.2 mg/dl (1.8-2.4); Potassium 3.9 mmol/L (3.5-5.1); Sodium 142 mmol/L (136-145)
[2020-12-24 05:39] LABS: Basophils # (auto) 0.02 K/uL (0-0.2); Basophils % (auto) 0.1 %; Eosinophils # (auto) 0.01 K/uL (0-0.5); Immature Granulocytes # (auto) 0.24 K/uL (0.00-0.02); Immature Granulocytes % (auto) 0.7 %; Lymphocytes # (auto) 1.34 K/uL (1.2-3.4); Lymphocytes % (auto) 3.8 %; Monocytes % (auto) 5.1 %; Neutrophils # (auto) 32.08 K/uL (1.4-6.5); Neutrophils % (auto) 90.3 %
[2020-12-24 05:53] LABS: Alkaline Phosphatase 99 U/L (45-117); Bilirubin,Total 0.5 mg/dl (0.2-1); Phosphorus 1.2 mg/dl (2.5-4.9); Total Protein 6.4 gm/dl (6.4-8.2)
[2020-12-24] MEDS ORDERED: 0.2 MICRON FILTER SET 1 EA IV ONE (06:20)
[2020-12-24] MEDS ORDERED: AMIODARONE / D5W 360 MG/200 ML BAG IV SCH (06:30)
[2020-12-24 06:38] LABS: Estimated Average Glucose 134 mg/dl; Hemoglobin A1C 6.3 % (4.5-5.6)
[2020-12-24 07:33] LABS: iSTAT Art Bld Gas pCO2 Correct 39 mmHg (35-46); iSTAT Art Bld Gas pH Corrected 7.421 (7.35-7.45); iSTAT Arterial Blood Gas HCO3 26 meg/L (19-24); iSTAT Arterial Blood Gas pCO2 39 mmHg (35-46); iSTAT Arterial Blood Gas pH 7.42 (7.35-7.45); iSTAT Arterial Blood Gas pO2 181 mmHg (80-95); iSTAT Arterial Blood Gas pO2 C 181; iSTAT Carbon Dioxide 27 mmol/L (24-31); iSTAT FiO2 100 %; iSTAT Hematocrit 51 % (42-52); iSTAT Hemoglobin 17.3 g/dl (14.0-18.0); iSTAT Potassium 3.6 mmol/L (3.3-5.0); iSTAT Site Art Line; iSTAT Sodium 139 mmol/L (135-144)
[2020-12-24 07:33] LABS: iSTAT Art Bld Gas pCO2 Correct 60 mmHg (35-46); iSTAT Arterial Blood Gas HCO3 28 meg/L (19-24); iSTAT Arterial Blood Gas pCO2 60 mmHg (35-46); iSTAT Arterial Blood Gas pH 7.27 (7.35-7.45); iSTAT Arterial Blood Gas pO2 84 mmHg (80-95); iSTAT Arterial Blood Gas pO2 C 84; iSTAT Carbon Dioxide 29 mmol/L (24-31); iSTAT FiO2 100 %; iSTAT Hematocrit 52 % (42-52); iSTAT Hemoglobin 17.7 g/dl (14.0-18.0); iSTAT Potassium 3.5 mmol/L (3.3-5.0); iSTAT Site Art Line; iSTAT Sodium 141 mmol/L (135-144)
--- NOTE | 2020-12-24 07:38 | Critical Care Progress Note ---
Date of Service December 24, 2020 Assessment & Plan (1) Brainstem : Patient meets criteria for brainstem via [employer] and [place] uniform determination of act Time of : 720 (2) Intracranial hemorrhage: (3) Brainstem herniation: Admission and Anticipated Discharge Date Admission Date: December 23, 2020 Subjective Large intracranial hemorrhage with evidence of herniation, performing brain examination, oh p.o. has already contacted family and family would like to proceed with organ donation Review of Systems Review of Systems: Unobtainable due to reduced consciousness Physical Exam Physical Exam: Neuro: No spontaneous movement, no spontaneous movement to pain applied in all 4 extremities No pupillary response, no corneal reflex, no oculocephalic reflex, cold calorics negative, no cough reflex no gag reflex Apnea during 5 minutes of brain testing Cardiovascular: S1-S2 regular rate and rhythm, blood pressure remained 110 systolic during entire apnea testing Pulmonary: Apnea Abdominal: No hepatosplenomegaly Extremities: No obvious deformity, no edema Results & Data Results & Data ([facility]) Vital Signs (Past 12 Hours) Vital Signs Temp Pulse Resp BP BP Pulse Ox 12/24/20 06:45 37.4 C 97 H 99 12/24/20 06:40 37.4 C 97 H 99 12/24/20 06:35 37.4 C 97 H 99 12/24/20 06:30 37.4 C 98 H 99 12/24/20 06:25 37.3 C 98 H 99 12/24/20 06:20 37.3 C 98 H 100 12/24/20 06:15 37.3 C 98 H 100 12/24/20 06:10 37.3 C 98 H 99 12/24/20 06:05 37.3 C 98 H 99 12/24/20 06:00 37.3 C 98 H 99 12/24/20 05:57 37.3 C 99 H 115/83 99 12/24/20 05:55 37.3 C 98 H 97 12/24/20 05:50 37.2 C 98 H 98 12/24/20 05:45 37.2 C 97 H 98 12/24/20 05:40 37.2 C 96 H 98 12/24/20 05:35 37.2 C 96 H 98 12/24/20 05:30 37.2 C 96 H 97 12/24/20 05:25 37.1 C 96 H 98 12/24/20 05:20 37.1 C 96 H 98 12/24/20 05:15 37.1 C 96 H 98 12/24/20 05:10 37.1 C 96 H 97 12/24/20 05:05 37.0 C 97 H 98 12/24/20 05:00 37.0 C 96 H 97 12/24/20 04:57 37.0 C 96 H 99/70 L 98 12/24/20 04:55 37.0 C 96 H 98 12/24/20 04:50 37.0 C 98 H 98 12/24/20 04:45 36.9 C 95 H 97 12/24/20 04:40 36.9 C 96 H 98 12/24/20 04:35 36.9 C 96 H 98 12/24/20 04:30 36.9 C 96 H 98 12/24/20 04:25 36.8 C 95 H 98 12/24/20 04:20 36.8 C 96 H 98 12/24/20 04:15 36.8 C 96 H 98 12/24/20 04:10 36.7 C 94 H 100 12/24/20 04:05 36.7 C 94 H 100 12/24/20 04:04 94 H 24 100 12/24/20 04:00 36.7 C 95 H 100 12/24/20 03:57 36.6 C 94 H 92/71 L 100 12/24/20 03:55 36.6 C 95 H 100 12/24/20 03:50 36.6 C 95 H 99 12/24/20 03:47 36.6 C 95 H 98/78 L 100 12/24/20 03:45 36.5 C 96 H 99 12/24/20 03:40 36.5 C 97 H 98 12/24/20 03:38 36.5 C 99 H 84/52 L 100 12/24/20 03:35 36.5 C 91 H 100 12/24/20 03:30 36.4 C L 93 H 100 12/24/20 03:27 36.4 C L 92 H 111/76 100 12/24/20 03:25 36.4 C L 93 H 100 12/24/20 03:20 36.3 C L 93 H 100 12/24/20 03:17 36.3 C L 94 H 97/79 L 99 12/24/20 03:15 36.3 C L 94 H 100 12/24/20 03:10 36.2 C L 94 H 100 12/24/20 03:07 36.2 C L 94 H 93/74 L 100 12/24/20 03:05 36.2 C L 94 H 100 12/24/20 03:00 36.2 C L 95 H 100 12/24/20 02:57 36.1 C L 95 H 104/70 100 12/24/20 02:55 36.1 C L 95 H 100 12/24/20 02:50 36.1 C L 93 H 99 12/24/20 02:47 36.1 C L 93 H 99/80 L 99 12/24/20 02:45 36.0 C L 94 H 99 12/24/20 02:40 36.0 C L 93 H 99 12/24/20 02:37 36.0 C L 93 H 103/85 99 12/24/20 02:36 36.0 C L 93 H 99 12/24/20 00:50 35.1 C L 104 H 119/86 98 12/24/20 00:45 35.0 C L 104 H 98 12/24/20 00:35 34.9 C L 102 H 122/89 99 12/24/20 00:30 34.9 C L 94 H 98 12/24/20 00:20 34.8 C L 103 H 135/94 97 12/24/20 00:15 34.7 C L 103 H 98 12/24/20 00:05 34.6 C L 103 H 134/97 98 12/24/20 00:00 34.6 C L 104 H 98 12/23/20 23:50 34.5 C L 103 H 139/100 96 12/23/20 23:45 34.4 C L 104 H 97 12/23/20 23:35 34.4 C L 104 H 135/103 H 97 12/23/20 23:30 34.3 C L 103 H 96 12/23/20 23:20 34.2 C L 103 H 139/98 96 12/23/20 23:15 34.2 C L 103 H 23 96 12/23/20 23:05 34.1 C L 105 H 141/99 H 96 12/23/20 23:00 34.1 C L 105 H 96 12/23/20 22:50 34.0 C L 107 H 22 140/100 96 12/23/20 22:48 34.0 C L 107 H 139/100 94 12/23/20 22:45 34.0 C L 107 H 95 12/23/20 22:35 34.0 C L 106 H 143/101 H 95 12/23/20 22:31 34.0 C L 105 H 96 12/23/20 22:29 34.0 C L 105 H 158/105 H 95 12/23/20 22:27 34.0 C L 105 H 163/109 H 95 12/23/20 22:20 34.0 C L 106 H 172/118 H 95 12/23/20 22:15 34.0 C L 103 H 95 12/23/20 22:10 34.3 C L 139/98 96 12/23/20 22:03 114 H 105/86 12/23/20 22:01 113 H 12/23/20 21:35 102 H 119/94 95 12/23/20 21:30 102 H 124/85 96 12/23/20 21:25 102 H 122/91 95 12/23/20 21:20 101 H 123/82 93 12/23/20 21:15 102 H 121/79 93 12/23/20 21:10 102 H 113/84 92 12/23/20 21:05 102 H 115/82 95 12/23/20 20:55 102 H 109/78 94 12/23/20 20:50 102 H 106/79 92 12/23/20 20:45 102 H 108/76 92 12/23/20 20:40 102 H 112/77 91 12/23/20 20:35 103 H 107/75 92 12/23/20 20:30 104 H 87/67 L 92 12/23/20 20:25 102 H 100/70 93 12/23/20 20:20 102 H 98/71 L 93 12/23/20 20:15 103 H 97/69 L 93 12/23/20 20:10 103 H 96/68 L 92 12/23/20 20:05 105 H 98/70 L 92 12/23/20 19:58 22 12/23/20 19:55 107 H 95/66 L 92 12/23/20 19:50 108 H 98/66 L 91 12/23/20 19:45 108 H 91/66 L 91 12/23/20 19:40 109 H 90/66 L 91 12/23/20 19:35 110 H 92/68 L 90 12/23/20 19:31 112 H 99/68 L 90 Laboratory Results 12/24/20 12/24/20 12/24/20 Range/Units 07:20 07:04 06:36 WBC (4.8-10.8) K/uL RBC (4.7-6.1) M/uL Hgb (14.0-18.0) g/dL POC Hgb Pending Pending (14.0-18.0) g/dl Hct (42-52) % POC Hct Pending Pending (42-52) % MCV (80-100) fL MCH (25-34) pg MCHC (32-36) g/dL RDW Std Deviation (36.4-46.3) fL RDW Coeff of Kev (11.5-14.5) % Plt Count (130-400) K/uL MPV (7.4-10.4) fL Immature Gran % (Auto) % Neut % (Auto) % Lymph % (Auto) % Atkinson % (Auto) % Eos % (Auto) % Baso % (Auto) % Neut # (Auto) (1.4-6.5) K/uL Lymph # (Auto) (1.2-3.4) K/uL Atkinson # (Auto) (0.11-0.59) K/uL Eos # (Auto) (0-0.5) K/uL Baso # (Auto) (0-0.2) K/uL Immature Gran # (Auto) (0.00-0.02) K/uL Blood Smear Review PT (9.0-12.0) Seconds INR (0.9-1.1) APTT (21.0-31.0) Seconds PTT Ratio Sample Site POC pH Pending Pending (7.35-7.45) POC pCO2 Pending Pending (35-46) mmHg POC pO2 Pending Pending (80-95) mmHg POC HCO3 Pending Pending (19-24) ashley/L POC Base Excess Pending Pending (-9-1.8) ashley/L ABG pH (Temp Correct) (7.35-7.45) ABG pCO2 (Temp Corrct (35-46) mmHg POC ABG pO2 at Pt Temp POC ABG O2 Sat (90-95) % Piotr Test VBG pH (7.36-7.41) VBG pCO2 (38-50) mmHg VBG pO2 mmHg VBG HCO3 mmol/L VBG O2 Saturation % VBG Base Excess mEq/L Barometric Pressure mm/Hg O2 Delivery Device POC O2 Rate Minute Ventilation POC FiO2 % Tidal Volume PEEP POC Sodium Pending Pending (135-144) mmol/L Sodium (136-145) mmol/L POC Potassium Pending Pending (3.3-5.0) mmol/L Potassium (3.5-5.1) mmol/L POC Chloride (101-112) mmol/L Chloride (98-107) mmol/L Carbon Dioxide (21-32) mmol/L POC Total CO2 Pending Pending (24-31) mmol/L Anion Gap (3-11) POC Anion Gap (16-25) mmol/L POC BUN (7-18) mg/dl BUN (7-18) mg/dl Creatinine (0.6-1.4) mg/dl POC Creatinine (0.6-1.3) mg/dl Est Cr Clr Drug Dosing ml/min Est GFR ( Amer) Est GFR (Non-Af Amer) BUN/Creatinine Ratio (10-20) Glucose (70-99) mg/dl POC Glucose (other) 151 H (70-99) mg/dl Estimat Average Glucose mg/dl Hemoglobin A1c (4.5-5.6) % Lactate (0.4-2.0) mmol/L Calcium (8.5-10.1) mg/dl POC Ioniz Calcium Sukhdeep (1.12-1.32) mmol/l Ionized Calcium (1.12-1.32) mmol/L Phosphorus (2.5-4.9) mg/dl Magnesium (1.8-2.4) mg/dl Total Bilirubin (0.2-1) mg/dl Direct Bilirubin (0-0.2) mg/dl GGT AST (15-37) U/L ALT (12-78) U/L Alkaline Phosphatase (45-117) U/L Lactate Dehydrogenase (87-241) U/L CK-MB (CK-2) (0.5-3.6) ng/ml Troponin I (0-0.045) ng/ml Total Protein (6.4-8.2) gm/dl Albumin (3.4-5.0) gm/dl Globulin (2.5-4.0) gm/dl Albumin/Globulin Ratio (0.9-2) Amylase (25-115) U/L Lipase (73-393) U/L Procalcitonin (0-0.5) ng/ml Nasal Screen MRSA (PCR) (Negative) COVID-19 Eval Order SARS-CoV-2, RNA, NAAT (NEGATIVE) Blood Type Blood Type Recheck Antibody Screen Crossmatch 12/24/20 12/24/20 12/24/20 Range/Units 04:32 04:23 04:23 WBC (4.8-10.8) K/uL RBC (4.7-6.1) M/uL Hgb (14.0-18.0) g/dL POC Hgb (14.0-18.0) g/dl Hct (42-52) % POC Hct (42-52) % MCV (80-100) fL MCH (25-34) pg MCHC (32-36) g/dL RDW Std Deviation (36.4-46.3) fL RDW Coeff of Kev (11.5-14.5) % Plt Count (130-400) K/uL MPV (7.4-10.4) fL Immature Gran % (Auto) % Neut % (Auto) % Lymph % (Auto) % Atkinson % (Auto) % Eos % (Auto) % Baso % (Auto) % Neut # (Auto) (1.4-6.5) K/uL Lymph # (Auto) (1.2-3.4) K/uL Atkinson # (Auto) (0.11-0.59) K/uL Eos # (Auto) (0-0.5) K/uL Baso # (Auto) (0-0.2) K/uL Immature Gran # (Auto) (0.00-0.02) K/uL Blood Smear Review PT (9.0-12.0) Seconds INR (0.9-1.1) APTT (21.0-31.0) Seconds PTT Ratio Sample Site POC pH (7.35-7.45) POC pCO2 (35-46) mmHg POC pO2 (80-95) mmHg POC HCO3 (19-24) ashley/L POC Base Excess (-9-1.8) ashley/L ABG pH (Temp Correct) (7.35-7.45) ABG pCO2 (Temp Corrct (35-46) mmHg POC ABG pO2 at Pt Temp POC ABG O2 Sat (90-95) % Piotr Test VBG pH (7.36-7.41) VBG pCO2 (38-50) mmHg VBG pO2 mmHg VBG HCO3 mmol/L VBG O2 Saturation % VBG Base Excess mEq/L Barometric Pressure mm/Hg O2 Delivery Device POC O2 Rate Minute Ventilation POC FiO2 % Tidal Volume PEEP POC Sodium (135-144) mmol/L Sodium (136-145) mmol/L POC Potassium (3.3-5.0) mmol/L Potassium (3.5-5.1) mmol/L POC Chloride (101-112) mmol/L Chloride (98-107) mmol/L Carbon Dioxide (21-32) mmol/L POC Total CO2 (24-31) mmol/L Anion Gap (3-11) POC Anion Gap (16-25) mmol/L POC BUN (7-18) mg/dl BUN (7-18) mg/dl Creatinine (0.6-1.4) mg/dl POC Creatinine (0.6-1.3) mg/dl Est Cr Clr Drug Dosing ml/min Est GFR ( Amer) Est GFR (Non-Af Amer) BUN/Creatinine Ratio (10-20) Glucose (70-99) mg/dl POC Glucose (other) 145 H (70-99) mg/dl Estimat Average Glucose mg/dl Hemoglobin A1c (4.5-5.6) % Lactate (0.4-2.0) mmol/L Calcium (8.5-10.1) mg/dl POC Ioniz Calcium Sukhdeep (1.12-1.32) mmol/l Ionized Calcium 1.08 L (1.12-1.32) mmol/L Phosphorus (2.5-4.9) mg/dl Magnesium (1.8-2.4) mg/dl Total Bilirubin (0.2-1) mg/dl Direct Bilirubin (0-0.2) mg/dl GGT AST (15-37) U/L ALT (12-78) U/L Alkaline Phosphatase (45-117) U/L Lactate Dehydrogenase (87-241) U/L CK-MB (CK-2) (0.5-3.6) ng/ml Troponin I (0-0.045) ng/ml Total Protein (6.4-8.2) gm/dl Albumin (3.4-5.0) gm/dl Globulin (2.5-4.0) gm/dl Albumin/Globulin Ratio (0.9-2) Amylase (25-115) U/L Lipase (73-393) U/L Procalcitonin (0-0.5) ng/ml Nasal Screen MRSA (PCR) (Negative) COVID-19 Eval Order SARS-CoV-2, RNA, NAAT (NEGATIVE) Blood Type Blood Type Recheck Pending Antibody Screen Crossmatch 12/24/20 12/24/20 12/24/20 Range/Units 04:23 04:23 04:23 WBC (4.8-10.8) K/uL RBC (4.7-6.1) M/uL Hgb (14.0-18.0) g/dL POC Hgb (14.0-18.0) g/dl Hct (42-52) % POC Hct (42-52) % MCV (80-100) fL MCH (25-34) pg MCHC (32-36) g/dL RDW Std Deviation (36.4-46.3) fL RDW Coeff of Kev (11.5-14.5) % Plt Count (130-400) K/uL MPV (7.4-10.4) fL Immature Gran % (Auto) % Neut % (Auto) % Lymph % (Auto) % Atkinson % (Auto) % Eos % (Auto) % Baso % (Auto) % Neut # (Auto) (1.4-6.5) K/uL Lymph # (Auto) (1.2-3.4) K/uL Atkinson # (Auto) (0.11-0.59) K/uL Eos # (Auto) (0-0.5) K/uL Baso # (Auto) (0-0.2) K/uL Immature Gran # (Auto) (0.00-0.02) K/uL Blood Smear Review PT (9.0-12.0) Seconds INR (0.9-1.1) APTT 24.8 (21.0-31.0) Seconds PTT Ratio 0.9 Sample Site POC pH (7.35-7.45) POC pCO2 (35-46) mmHg POC pO2 (80-95) mmHg POC HCO3 (19-24) ashley/L POC Base Excess (-9-1.8) ashley/L ABG pH (Temp Correct) (7.35-7.45) ABG pCO2 (Temp Corrct (35-46) mmHg POC ABG pO2 at Pt Temp POC ABG O2 Sat (90-95) % Piotr Test VBG pH (7.36-7.41) VBG pCO2 (38-50) mmHg VBG pO2 mmHg VBG HCO3 mmol/L VBG O2 Saturation % VBG Base Excess mEq/L Barometric Pressure mm/Hg O2 Delivery Device POC O2 Rate Minute Ventilation POC FiO2 % Tidal Volume PEEP POC Sodium (135-144) mmol/L Sodium 142 (136-145) mmol/L POC Potassium (3.3-5.0) mmol/L Potassium 3.9 (3.5-5.1) mmol/L POC Chloride (101-112) mmol/L Chloride 110 H (98-107) mmol/L Carbon Dioxide 26 (21-32) mmol/L POC Total CO2 (24-31) mmol/L Anion Gap 6.0 (3-11) POC Anion Gap (16-25) mmol/L POC BUN (7-18) mg/dl BUN 23 H (7-18) mg/dl Creatinine 2.31 H D (0.6-1.4) mg/dl POC Creatinine (0.6-1.3) mg/dl Est Cr Clr Drug Dosing 47.2 ml/min Est GFR ( Amer) 34.5 Est GFR (Non-Af Amer) 29.8 BUN/Creatinine Ratio 9.8 L (10-20) Glucose 145 H (70-99) mg/dl POC Glucose (other) (70-99) mg/dl Estimat Average Glucose mg/dl Hemoglobin A1c (4.5-5.6) % Lactate (0.4-2.0) mmol/L Calcium 8.2 L (8.5-10.1) mg/dl POC Ioniz Calcium Sukhdeep (1.12-1.32) mmol/l Ionized Calcium (1.12-1.32) mmol/L Phosphorus 1.2 L* D (2.5-4.9) mg/dl Magnesium 2.2 (1.8-2.4) mg/dl Total Bilirubin 0.5 (0.2-1) mg/dl Direct Bilirubin 0.1 (0-0.2) mg/dl GGT AST 219 H (15-37) U/L ALT 229 H (12-78) U/L Alkaline Phosphatase 99 (45-117) U/L Lactate Dehydrogenase 523 H (87-241) U/L CK-MB (CK-2) 115.0 H (0.5-3.6) ng/ml Troponin I 16.300 H* (0-0.045) ng/ml Total Protein 6.4 (6.4-8.2) gm/dl Albumin 2.7 L (3.4-5.0) gm/dl Globulin (2.5-4.0) gm/dl Albumin/Globulin Ratio (0.9-2) Amylase 95 (25-115) U/L Lipase 111 (73-393) U/L Procalcitonin (0-0.5) ng/ml Nasal Screen MRSA (PCR) (Negative) COVID-19 Eval Order SARS-CoV-2, RNA, NAAT (NEGATIVE) Blood Type Blood Type Recheck Antibody Screen Crossmatch 12/24/20 12/24/20 12/24/20 Range/Units 04:23 04:23 04:04 WBC 35.49 H* (4.8-10.8) K/uL RBC 5.74 (4.7-6.1) M/uL Hgb 16.7 (14.0-18.0) g/dL POC Hgb 17.7 (14.0-18.0) g/dl Hct 50.6 (42-52) % POC Hct 52 (42-52) % MCV 88.2 (80-100) fL MCH 29.1 (25-34) pg MCHC 33.0 (32-36) g/dL RDW Std Deviation 47.3 H (36.4-46.3) fL RDW Coeff of Kev 14.7 H (11.5-14.5) % Plt Count 246 (130-400) K/uL MPV 12.2 H (7.4-10.4) fL Immature Gran % (Auto) 0.7 % Neut % (Auto) 90.3 % Lymph % (Auto) 3.8 % Atkinson % (Auto) 5.1 % Eos % (Auto) 0.0 % Baso % (Auto) 0.1 % Neut # (Auto) 32.08 H (1.4-6.5) K/uL Lymph # (Auto) 1.34 (1.2-3.4) K/uL Atkinson # (Auto) 1.80 H (0.11-0.59) K/uL Eos # (Auto) 0.01 (0-0.5) K/uL Baso # (Auto) 0.02 (0-0.2) K/uL Immature Gran # (Auto) 0.24 H (0.00-0.02) K/uL Blood Smear Review PT (9.0-12.0) Seconds INR (0.9-1.1) APTT (21.0-31.0) Seconds PTT Ratio Sample Site Art Line POC pH 7.39 (7.35-7.45) POC pCO2 44 (35-46) mmHg POC pO2 242 H (80-95) mmHg POC HCO3 27 H (19-24) ashley/L POC Base Excess 2.0 H (-9-1.8) ashley/L ABG pH (Temp Correct) 7.394 (7.35-7.45) ABG pCO2 (Temp Corrct 44 (35-46) mmHg POC ABG pO2 at Pt Temp 240 POC ABG O2 Sat 100.0 H (90-95) % Piotr Test NA VBG pH (7.36-7.41) VBG pCO2 (38-50) mmHg VBG pO2 mmHg VBG HCO3 mmol/L VBG O2 Saturation % VBG Base Excess mEq/L Barometric Pressure mm/Hg O2 Delivery Device Ventilator POC O2 Rate 24 Minute Ventilation 12.0 POC FiO2 100 % Tidal Volume 500 PEEP 5 POC Sodium 140 (135-144) mmol/L Sodium (136-145) mmol/L POC Potassium 3.7 (3.3-5.0) mmol/L Potassium (3.5-5.1) mmol/L POC Chloride (101-112) mmol/L Chloride (98-107) mmol/L Carbon Dioxide (21-32) mmol/L POC Total CO2 28 (24-31) mmol/L Anion Gap (3-11) POC Anion Gap (16-25) mmol/L POC BUN (7-18) mg/dl BUN (7-18) mg/dl Creatinine (0.6-1.4) mg/dl POC Creatinine (0.6-1.3) mg/dl Est Cr Clr Drug Dosing ml/min Est GFR ( Amer) Est GFR (Non-Af Amer) BUN/Creatinine Ratio (10-20) Glucose (70-99) mg/dl POC Glucose (other) (70-99) mg/dl Estimat Average Glucose 134 mg/dl Hemoglobin A1c 6.3 H (4.5-5.6) % Lactate (0.4-2.0) mmol/L Calcium (8.5-10.1) mg/dl POC Ioniz Calcium Sukhdeep (1.12-1.32) mmol/l Ionized Calcium (1.12-1.32) mmol/L Phosphorus (2.5-4.9) mg/dl Magnesium (1.8-2.4) mg/dl Total Bilirubin (0.2-1) mg/dl Direct Bilirubin (0-0.2) mg/dl GGT AST (15-37) U/L ALT (12-78) U/L Alkaline Phosphatase (45-117) U/L Lactate Dehydrogenase (87-241) U/L CK-MB (CK-2) (0.5-3.6) ng/ml Troponin I (0-0.045) ng/ml Total Protein (6.4-8.2) gm/dl Albumin (3.4-5.0) gm/dl Globulin (2.5-4.0) gm/dl Albumin/Globulin Ratio (0.9-2) Amylase (25-115) U/L Lipase (73-393) U/L Procalcitonin (0-0.5) ng/ml Nasal Screen MRSA (PCR) (Negative) COVID-19 Eval Order SARS-CoV-2, RNA, NAAT (NEGATIVE) Blood Type Blood Type Recheck Antibody Screen Crossmatch 12/24/20 12/24/20 12/24/20 Range/Units 03:48 02:42 01:39 WBC (4.8-10.8) K/uL RBC (4.7-6.1) M/uL Hgb (14.0-18.0) g/dL POC Hgb (14.0-18.0) g/dl Hct (42-52) % POC Hct (42-52) % MCV (80-100) fL MCH (25-34) pg MCHC (32-36) g/dL RDW Std Deviation (36.4-46.3) fL RDW Coeff of Kev (11.5-14.5) % Plt Count (130-400) K/uL MPV (7.4-10.4) fL Immature Gran % (Auto) % Neut % (Auto) % Lymph % (Auto) % Atkinson % (Auto) % Eos % (Auto) % Baso % (Auto) % Neut # (Auto) (1.4-6.5) K/uL Lymph # (Auto) (1.2-3.4) K/uL Atkinson # (Auto) (0.11-0.59) K/uL Eos # (Auto) (0-0.5) K/uL Baso # (Auto) (0-0.2) K/uL Immature Gran # (Auto) (0.00-0.02) K/uL Blood Smear Review PT (9.0-12.0) Seconds INR (0.9-1.1) APTT (21.0-31.0) Seconds PTT Ratio Sample Site POC pH (7.35-7.45) POC pCO2 (35-46) mmHg POC pO2 (80-95) mmHg POC HCO3 (19-24) ashley/L POC Base Excess (-9-1.8) ashley/L ABG pH (Temp Correct) (7.35-7.45) ABG pCO2 (Temp Corrct (35-46) mmHg POC ABG pO2 at Pt Temp POC ABG O2 Sat (90-95) % Piotr Test VBG pH (7.36-7.41) VBG pCO2 (38-50) mmHg VBG pO2 mmHg VBG HCO3 mmol/L VBG O2 Saturation % VBG Base Excess mEq/L Barometric Pressure mm/Hg O2 Delivery Device POC O2 Rate Minute Ventilation POC FiO2 % Tidal Volume PEEP POC Sodium (135-144) mmol/L Sodium (136-145) mmol/L POC Potassium (3.3-5.0) mmol/L Potassium (3.5-5.1) mmol/L POC Chloride (101-112) mmol/L Chloride (98-107) mmol/L Carbon Dioxide (21-32) mmol/L POC Total CO2 (24-31) mmol/L Anion Gap (3-11) POC Anion Gap (16-25) mmol/L POC BUN (7-18) mg/dl BUN (7-18) mg/dl Creatinine (0.6-1.4) mg/dl POC Creatinine (0.6-1.3) mg/dl Est Cr Clr Drug Dosing ml/min Est GFR ( Amer) Est GFR (Non-Af Amer) BUN/Creatinine Ratio (10-20) Glucose (70-99) mg/dl POC Glucose (other) 145 H 155 H 179 H (70-99) mg/dl Estimat Average Glucose mg/dl Hemoglobin A1c (4.5-5.6) % Lactate (0.4-2.0) mmol/L Calcium (8.5-10.1) mg/dl POC Ioniz Calcium Sukhdeep (1.12-1.32) mmol/l Ionized Calcium (1.12-1.32) mmol/L Phosphorus (2.5-4.9) mg/dl Magnesium (1.8-2.4) mg/dl Total Bilirubin (0.2-1) mg/dl Direct Bilirubin (0-0.2) mg/dl GGT AST (15-37) U/L ALT (12-78) U/L Alkaline Phosphatase (45-117) U/L Lactate Dehydrogenase (87-241) U/L CK-MB (CK-2) (0.5-3.6) ng/ml Troponin I (0-0.045) ng/ml Total Protein (6.4-8.2) gm/dl Albumin (3.4-5.0) gm/dl Globulin (2.5-4.0) gm/dl Albumin/Globulin Ratio (0.9-2) Amylase (25-115) U/L Lipase (73-393) U/L Procalcitonin (0-0.5) ng/ml Nasal Screen MRSA (PCR) (Negative) COVID-19 Eval Order SARS-CoV-2, RNA, NAAT (NEGATIVE) Blood Type Blood Type Recheck Antibody Screen Crossmatch 12/23/20 12/23/20 12/23/20 Range/Units Unknown 22:51 22:51 WBC 36.51 H* D (4.8-10.8) K/uL RBC 6.06 (4.7-6.1) M/uL Hgb 17.8 (14.0-18.0) g/dL POC Hgb (14.0-18.0) g/dl Hct 54.4 H (42-52) % POC Hct (42-52) % MCV 89.8 (80-100) fL MCH 29.4 (25-34) pg MCHC 32.7 (32-36) g/dL RDW Std Deviation 48.4 H (36.4-46.3) fL RDW Coeff of Kev 14.7 H (11.5-14.5) % Plt Count 226 (130-400) K/uL MPV 12.6 H (7.4-10.4) fL Immature Gran % (Auto) 1.0 % Neut % (Auto) 89.1 % Lymph % (Auto) 6.8 % Atkinson % (Auto) 2.9 % Eos % (Auto) 0.1 % Baso % (Auto) 0.1 % Neut # (Auto) 32.51 H (1.4-6.5) K/uL Lymph # (Auto) 2.49 (1.2-3.4) K/uL Atkinson # (Auto) 1.05 H (0.11-0.59) K/uL Eos # (Auto) 0.04 (0-0.5) K/uL Baso # (Auto) 0.04 (0-0.2) K/uL Immature Gran # (Auto) 0.38 H (0.00-0.02) K/uL Blood Smear Review PT (9.0-12.0) Seconds INR (0.9-1.1) APTT (21.0-31.0) Seconds PTT Ratio Sample Site POC pH (7.35-7.45) POC pCO2 (35-46) mmHg POC pO2 (80-95) mmHg POC HCO3 (19-24) ashley/L POC Base Excess (-9-1.8) ashley/L ABG pH (Temp Correct) (7.35-7.45) ABG pCO2 (Temp Corrct (35-46) mmHg POC ABG pO2 at Pt Temp POC ABG O2 Sat (90-95) % Piotr Test VBG pH (7.36-7.41) VBG pCO2 (38-50) mmHg VBG pO2 mmHg VBG HCO3 mmol/L VBG O2 Saturation % VBG Base Excess mEq/L Barometric Pressure mm/Hg O2 Delivery Device POC O2 Rate Minute Ventilation POC FiO2 % Tidal Volume PEEP POC Sodium (135-144) mmol/L Sodium 139 (136-145) mmol/L POC Potassium (3.3-5.0) mmol/L Potassium 4.1 D (3.5-5.1) mmol/L POC Chloride (101-112) mmol/L Chloride 105 (98-107) mmol/L Carbon Dioxide 26 (21-32) mmol/L POC Total CO2 (24-31) mmol/L Anion Gap 8.0 (3-11) POC Anion Gap (16-25) mmol/L POC BUN (7-18) mg/dl BUN 18 (7-18) mg/dl Creatinine 1.73 H (0.6-1.4) mg/dl POC Creatinine (0.6-1.3) mg/dl Est Cr Clr Drug Dosing 63.0 ml/min Est GFR ( Amer) 49.0 Est GFR (Non-Af Amer) 42.3 BUN/Creatinine Ratio 10.6 (10-20) Glucose 246 H (70-99) mg/dl POC Glucose (other) (70-99) mg/dl Estimat Average Glucose mg/dl Hemoglobin A1c (4.5-5.6) % Lactate (0.4-2.0) mmol/L Calcium 8.5 (8.5-10.1) mg/dl POC Ioniz Calcium Sukhdeep (1.12-1.32) mmol/l Ionized Calcium (1.12-1.32) mmol/L Phosphorus 4.8 (2.5-4.9) mg/dl Magnesium 2.2 (1.8-2.4) mg/dl Total Bilirubin 0.5 (0.2-1) mg/dl Direct Bilirubin 0.2 (0-0.2) mg/dl GGT AST 253 H (15-37) U/L ALT 279 H (12-78) U/L Alkaline Phosphatase 130 H (45-117) U/L Lactate Dehydrogenase (87-241) U/L CK-MB (CK-2) (0.5-3.6) ng/ml Troponin I (0-0.045) ng/ml Total Protein 7.2 (6.4-8.2) gm/dl Albumin 3.0 L (3.4-5.0) gm/dl Globulin (2.5-4.0) gm/dl Albumin/Globulin Ratio (0.9-2) Amylase (25-115) U/L Lipase (73-393) U/L Procalcitonin (0-0.5) ng/ml Nasal Screen MRSA (PCR) Negative (Negative) COVID-19 Eval Order SARS-CoV-2, RNA, NAAT (NEGATIVE) Blood Type Blood Type Recheck Antibody Screen Crossmatch 12/23/20 12/23/20 12/23/20 Range/Units 22:34 22:28 20:23 WBC (4.8-10.8) K/uL RBC (4.7-6.1) M/uL Hgb (14.0-18.0) g/dL POC Hgb 19.0 H (14.0-18.0) g/dl Hct (42-52) % POC Hct 56 H (42-52) % MCV (80-100) fL MCH (25-34) pg MCHC (32-36) g/dL RDW Std Deviation (36.4-46.3) fL RDW Coeff of Kev (11.5-14.5) % Plt Count (130-400) K/uL MPV (7.4-10.4) fL Immature Gran % (Auto) % Neut % (Auto) % Lymph % (Auto) % Atkinson % (Auto) % Eos % (Auto) % Baso % (Auto) % Neut # (Auto) (1.4-6.5) K/uL Lymph # (Auto) (1.2-3.4) K/uL Atkinson # (Auto) (0.11-0.59) K/uL Eos # (Auto) (0-0.5) K/uL Baso # (Auto) (0-0.2) K/uL Immature Gran # (Auto) (0.00-0.02) K/uL Blood Smear Review PT (9.0-12.0) Seconds INR (0.9-1.1) APTT (21.0-31.0) Seconds PTT Ratio Sample Site R Radial POC pH 7.25 L (7.35-7.45) POC pCO2 63 H (35-46) mmHg POC pO2 93 (80-95) mmHg POC HCO3 28 H (19-24) ashley/L POC Base Excess 0.0 (-9-1.8) ashley/L ABG pH (Temp Correct) 7.295 L (7.35-7.45) ABG pCO2 (Temp Corrct 55 H (35-46) mmHg POC ABG pO2 at Pt Temp 76 POC ABG O2 Sat 95.0 (90-95) % Piotr Test Pass VBG pH (7.36-7.41) VBG pCO2 (38-50) mmHg VBG pO2 mmHg VBG HCO3 mmol/L VBG O2 Saturation % VBG Base Excess mEq/L Barometric Pressure mm/Hg O2 Delivery Device Ventilator POC O2 Rate 18 Minute Ventilation 9.01 POC FiO2 90 % Tidal Volume 500 PEEP 10 POC Sodium 136 (135-144) mmol/L Sodium (136-145) mmol/L POC Potassium 4.0 (3.3-5.0) mmol/L Potassium (3.5-5.1) mmol/L POC Chloride (101-112) mmol/L Chloride (98-107) mmol/L Carbon Dioxide (21-32) mmol/L POC Total CO2 30 (24-31) mmol/L Anion Gap (3-11) POC Anion Gap (16-25) mmol/L POC BUN (7-18) mg/dl BUN (7-18) mg/dl Creatinine (0.6-1.4) mg/dl POC Creatinine (0.6-1.3) mg/dl Est Cr Clr Drug Dosing ml/min Est GFR ( Amer) Est GFR (Non-Af Amer) BUN/Creatinine Ratio (10-20) Glucose (70-99) mg/dl POC Glucose (other) 262 H (70-99) mg/dl Estimat Average Glucose mg/dl Hemoglobin A1c (4.5-5.6) % Lactate 4.8 H* (0.4-2.0) mmol/L Calcium (8.5-10.1) mg/dl POC Ioniz Calcium Sukhdeep (1.12-1.32) mmol/l Ionized Calcium (1.12-1.32) mmol/L Phosphorus (2.5-4.9) mg/dl Magnesium (1.8-2.4) mg/dl Total Bilirubin (0.2-1) mg/dl Direct Bilirubin (0-0.2) mg/dl GGT AST (15-37) U/L ALT (12-78) U/L Alkaline Phosphatase (45-117) U/L Lactate Dehydrogenase (87-241) U/L CK-MB (CK-2) (0.5-3.6) ng/ml Troponin I (0-0.045) ng/ml Total Protein (6.4-8.2) gm/dl Albumin (3.4-5.0) gm/dl Globulin (2.5-4.0) gm/dl Albumin/Globulin Ratio (0.9-2) Amylase (25-115) U/L Lipase (73-393) U/L Procalcitonin (0-0.5) ng/ml Nasal Screen MRSA (PCR) (Negative) COVID-19 Eval Order SARS-CoV-2, RNA, NAAT (NEGATIVE) Blood Type Blood Type Recheck Antibody Screen Crossmatch 12/23/20 12/23/20 12/23/20 Range/Units 19:41 18:40 18:40 WBC (4.8-10.8) K/uL RBC (4.7-6.1) M/uL Hgb (14.0-18.0) g/dL POC Hgb 17.7 (14.0-18.0) g/dl Hct (42-52) % POC Hct 52 (42-52) % MCV (80-100) fL MCH (25-34) pg MCHC (32-36) g/dL RDW Std Deviation (36.4-46.3) fL RDW Coeff of Kev (11.5-14.5) % Plt Count (130-400) K/uL MPV (7.4-10.4) fL Immature Gran % (Auto) % Neut % (Auto) % Lymph % (Auto) % Atkinson % (Auto) % Eos % (Auto) % Baso % (Auto) % Neut # (Auto) (1.4-6.5) K/uL Lymph # (Auto) (1.2-3.4) K/uL Atkinson # (Auto) (0.11-0.59) K/uL Eos # (Auto) (0-0.5) K/uL Baso # (Auto) (0-0.2) K/uL Immature Gran # (Auto) (0.00-0.02) K/uL Blood Smear Review PT (9.0-12.0) Seconds INR (0.9-1.1) APTT (21.0-31.0) Seconds PTT Ratio Sample Site POC pH 7.12 L* (7.35-7.45) POC pCO2 82 H (35-46) mmHg POC pO2 80 (80-95) mmHg POC HCO3 26 H (19-24) ashley/L POC Base Excess -3.0 (-9-1.8) ashley/L ABG pH (Temp Correct) (7.35-7.45) ABG pCO2 (Temp Corrct (35-46) mmHg POC ABG pO2 at Pt Temp POC ABG O2 Sat 90.0 (90-95) % Piotr Test VBG pH (7.36-7.41) VBG pCO2 (38-50) mmHg VBG pO2 mmHg VBG HCO3 mmol/L VBG O2 Saturation % VBG Base Excess mEq/L Barometric Pressure mm/Hg O2 Delivery Device POC O2 Rate Minute Ventilation POC FiO2 % Tidal Volume PEEP POC Sodium 139 (135-144) mmol/L Sodium (136-145) mmol/L POC Potassium 3.6 (3.3-5.0) mmol/L Potassium (3.5-5.1) mmol/L POC Chloride (101-112) mmol/L Chloride (98-107) mmol/L Carbon Dioxide (21-32) mmol/L POC Total CO2 29 (24-31) mmol/L Anion Gap (3-11) POC Anion Gap (16-25) mmol/L POC BUN (7-18) mg/dl BUN (7-18) mg/dl Creatinine (0.6-1.4) mg/dl POC Creatinine (0.6-1.3) mg/dl Est Cr Clr Drug Dosing ml/min Est GFR ( Amer) Est GFR (Non-Af Amer) BUN/Creatinine Ratio (10-20) Glucose (70-99) mg/dl POC Glucose (other) (70-99) mg/dl Estimat Average Glucose mg/dl Hemoglobin A1c (4.5-5.6) % Lactate (0.4-2.0) mmol/L Calcium (8.5-10.1) mg/dl POC Ioniz Calcium Sukhdeep (1.12-1.32) mmol/l Ionized Calcium (1.12-1.32) mmol/L Phosphorus (2.5-4.9) mg/dl Magnesium (1.8-2.4) mg/dl Total Bilirubin (0.2-1) mg/dl Direct Bilirubin (0-0.2) mg/dl GGT AST (15-37) U/L ALT (12-78) U/L Alkaline Phosphatase (45-117) U/L Lactate Dehydrogenase (87-241) U/L CK-MB (CK-2) (0.5-3.6) ng/ml Troponin I (0-0.045) ng/ml Total Protein (6.4-8.2) gm/dl Albumin (3.4-5.0) gm/dl Globulin (2.5-4.0) gm/dl Albumin/Globulin Ratio (0.9-2) Amylase (25-115) U/L Lipase (73-393) U/L Procalcitonin (0-0.5) ng/ml Nasal Screen MRSA (PCR) (Negative) COVID-19 Eval Order Covid19 [facility]Now [facility] SARS-CoV-2, RNA, NAAT NEGATIVE (NEGATIVE) Blood Type Blood Type Recheck Antibody Screen Crossmatch 12/23/20 12/23/20 12/23/20 Range/Units 18:37 18:30 18:30 WBC 17.48 H (4.8-10.8) K/uL RBC 5.65 (4.7-6.1) M/uL Hgb 16.3 (14.0-18.0) g/dL POC Hgb 17.7 (14.0-18.0) g/dl Hct 52.5 H (42-52) % POC Hct 52 (42-52) % MCV 92.9 (80-100) fL MCH 28.8 (25-34) pg MCHC 31.0 L (32-36) g/dL RDW Std Deviation 49.7 H (36.4-46.3) fL RDW Coeff of Kev 14.7 H (11.5-14.5) % Plt Count 238 (130-400) K/uL MPV 13.3 H (7.4-10.4) fL Immature Gran % (Auto) 5.0 % Neut % (Auto) 55.6 % Lymph % (Auto) 31.8 % Atkinson % (Auto) 6.0 % Eos % (Auto) 1.3 % Baso % (Auto) 0.3 % Neut # (Auto) 9.72 H (1.4-6.5) K/uL Lymph # (Auto) 5.55 H (1.2-3.4) K/uL Atkinson # (Auto) 1.05 H (0.11-0.59) K/uL Eos # (Auto) 0.23 (0-0.5) K/uL Baso # (Auto) 0.06 (0-0.2) K/uL Immature Gran # (Auto) 0.87 H (0.00-0.02) K/uL Blood Smear Review Pending PT (9.0-12.0) Seconds INR (0.9-1.1) APTT (21.0-31.0) Seconds PTT Ratio Sample Site POC pH (7.35-7.45) POC pCO2 (35-46) mmHg POC pO2 (80-95) mmHg POC HCO3 (19-24) ashley/L POC Base Excess (-9-1.8) ashley/L ABG pH (Temp Correct) (7.35-7.45) ABG pCO2 (Temp Corrct (35-46) mmHg POC ABG pO2 at Pt Temp POC ABG O2 Sat (90-95) % Piotr Test VBG pH (7.36-7.41) VBG pCO2 (38-50) mmHg VBG pO2 mmHg VBG HCO3 mmol/L VBG O2 Saturation % VBG Base Excess mEq/L Barometric Pressure mm/Hg O2 Delivery Device POC O2 Rate Minute Ventilation POC FiO2 % Tidal Volume PEEP POC Sodium 141 (135-144) mmol/L Sodium (136-145) mmol/L POC Potassium 2.8 L (3.3-5.0) mmol/L Potassium (3.5-5.1) mmol/L POC Chloride 98 L (101-112) mmol/L Chloride (98-107) mmol/L Carbon Dioxide (21-32) mmol/L POC Total CO2 27 (24-31) mmol/L Anion Gap (3-11) POC Anion Gap 20.0 (16-25) mmol/L POC BUN 16 (7-18) mg/dl BUN (7-18) mg/dl Creatinine (0.6-1.4) mg/dl POC Creatinine 1.3 (0.6-1.3) mg/dl Est Cr Clr Drug Dosing ml/min Est GFR ( Amer) Est GFR (Non-Af Amer) BUN/Creatinine Ratio (10-20) Glucose (70-99) mg/dl POC Glucose (other) 241 H (70-99) mg/dl Estimat Average Glucose mg/dl Hemoglobin A1c (4.5-5.6) % Lactate 10.6 H* (0.4-2.0) mmol/L Calcium (8.5-10.1) mg/dl POC Ioniz Calcium Sukhdeep 1.10 L (1.12-1.32) mmol/l Ionized Calcium (1.12-1.32) mmol/L Phosphorus (2.5-4.9) mg/dl Magnesium (1.8-2.4) mg/dl Total Bilirubin (0.2-1) mg/dl Direct Bilirubin (0-0.2) mg/dl GGT AST (15-37) U/L ALT (12-78) U/L Alkaline Phosphatase (45-117) U/L Lactate Dehydrogenase (87-241) U/L CK-MB (CK-2) (0.5-3.6) ng/ml Troponin I (0-0.045) ng/ml Total Protein (6.4-8.2) gm/dl Albumin (3.4-5.0) gm/dl Globulin (2.5-4.0) gm/dl Albumin/Globulin Ratio (0.9-2) Amylase (25-115) U/L Lipase (73-393) U/L Procalcitonin (0-0.5) ng/ml Nasal Screen MRSA (PCR) (Negative) COVID-19 Eval Order SARS-CoV-2, RNA, NAAT (NEGATIVE) Blood Type Blood Type Recheck Antibody Screen Crossmatch 12/23/20 12/23/20 12/23/20 Range/Units 18:30 18:30 18:30 WBC (4.8-10.8) K/uL RBC (4.7-6.1) M/uL Hgb (14.0-18.0) g/dL POC Hgb (14.0-18.0) g/dl Hct (42-52) % POC Hct (42-52) % MCV (80-100) fL MCH (25-34) pg MCHC (32-36) g/dL RDW Std Deviation (36.4-46.3) fL RDW Coeff of Kev (11.5-14.5) % Plt Count (130-400) K/uL MPV (7.4-10.4) fL Immature Gran % (Auto) % Neut % (Auto) % Lymph % (Auto) % Atkinson % (Auto) % Eos % (Auto) % Baso % (Auto) % Neut # (Auto) (1.4-6.5) K/uL Lymph # (Auto) (1.2-3.4) K/uL Atkinson # (Auto) (0.11-0.59) K/uL Eos # (Auto) (0-0.5) K/uL Baso # (Auto) (0-0.2) K/uL Immature Gran # (Auto) (0.00-0.02) K/uL Blood Smear Review PT (9.0-12.0) Seconds INR (0.9-1.1) APTT (21.0-31.0) Seconds PTT Ratio Sample Site POC pH (7.35-7.45) POC pCO2 (35-46) mmHg POC pO2 (80-95) mmHg POC HCO3 (19-24) ashley/L POC Base Excess (-9-1.8) ashley/L ABG pH (Temp Correct) (7.35-7.45) ABG pCO2 (Temp Corrct (35-46) mmHg POC ABG pO2 at Pt Temp POC ABG O2 Sat (90-95) % Piotr Test VBG pH 6.97 L (7.36-7.41) VBG pCO2 124 H (38-50) mmHg VBG pO2 49 mmHg VBG HCO3 28 mmol/L VBG O2 Saturation 66.9 % VBG Base Excess -7.9 mEq/L Barometric Pressure 724.9 mm/Hg O2 Delivery Device POC O2 Rate Minute Ventilation POC FiO2 % Tidal Volume PEEP POC Sodium (135-144) mmol/L Sodium 142 (136-145) mmol/L POC Potassium (3.3-5.0) mmol/L Potassium 2.9 L (3.5-5.1) mmol/L POC Chloride (101-112) mmol/L Chloride 102 (98-107) mmol/L Carbon Dioxide 26 (21-32) mmol/L POC Total CO2 (24-31) mmol/L Anion Gap 14.0 H (3-11) POC Anion Gap (16-25) mmol/L POC BUN (7-18) mg/dl BUN 15 (7-18) mg/dl Creatinine 1.62 H (0.6-1.4) mg/dl POC Creatinine (0.6-1.3) mg/dl Est Cr Clr Drug Dosing 67.3 ml/min Est GFR ( Amer) 53.0 Est GFR (Non-Af Amer) 45.8 BUN/Creatinine Ratio 9.0 L (10-20) Glucose 234 H (70-99) mg/dl POC Glucose (other) (70-99) mg/dl Estimat Average Glucose mg/dl Hemoglobin A1c (4.5-5.6) % Lactate (0.4-2.0) mmol/L Calcium 8.6 (8.5-10.1) mg/dl POC Ioniz Calcium Sukhdeep (1.12-1.32) mmol/l Ionized Calcium (1.12-1.32) mmol/L Phosphorus (2.5-4.9) mg/dl Magnesium 2.9 H (1.8-2.4) mg/dl Total Bilirubin 0.2 (0.2-1) mg/dl Direct Bilirubin (0-0.2) mg/dl GGT AST 179 H (15-37) U/L ALT 240 H (12-78) U/L Alkaline Phosphatase 145 H (45-117) U/L Lactate Dehydrogenase (87-241) U/L CK-MB (CK-2) (0.5-3.6) ng/ml Troponin I 0.107 H* (0-0.045) ng/ml Total Protein 6.8 (6.4-8.2) gm/dl Albumin 2.8 L (3.4-5.0) gm/dl Globulin 4.0 (2.5-4.0) gm/dl Albumin/Globulin Ratio 0.7 L (0.9-2) Amylase (25-115) U/L Lipase (73-393) U/L Procalcitonin (0-0.5) ng/ml Nasal Screen MRSA (PCR) (Negative) COVID-19 Eval Order SARS-CoV-2, RNA, NAAT (NEGATIVE) Blood Type O Positive Blood Type Recheck Antibody Screen NEGATIVE Crossmatch See Detail 12/23/20 12/23/20 12/23/20 Range/Units 14:30 14:30 14:30 WBC (4.8-10.8) K/uL RBC (4.7-6.1) M/uL Hgb (14.0-18.0) g/dL POC Hgb (14.0-18.0) g/dl Hct (42-52) % POC Hct (42-52) % MCV (80-100) fL MCH (25-34) pg MCHC (32-36) g/dL RDW Std Deviation (36.4-46.3) fL RDW Coeff of Kev (11.5-14.5) % Plt Count (130-400) K/uL MPV (7.4-10.4) fL Immature Gran % (Auto) % Neut % (Auto) % Lymph % (Auto) % Atkinson % (Auto) % Eos % (Auto) % Baso % (Auto) % Neut # (Auto) (1.4-6.5) K/uL Lymph # (Auto) (1.2-3.4) K/uL Atkinson # (Auto) (0.11-0.59) K/uL Eos # (Auto) (0-0.5) K/uL Baso # (Auto) (0-0.2) K/uL Immature Gran # (Auto) (0.00-0.02) K/uL Blood Smear Review PT 10.9 (9.0-12.0) Seconds INR 1.1 (0.9-1.1) APTT 28.1 (21.0-31.0) Seconds PTT Ratio 1.1 Sample Site POC pH (7.35-7.45) POC pCO2 (35-46) mmHg POC pO2 (80-95) mmHg POC HCO3 (19-24) ashley/L POC Base Excess (-9-1.8) ashley/L ABG pH (Temp Correct) (7.35-7.45) ABG pCO2 (Temp Corrct (35-46) mmHg POC ABG pO2 at Pt Temp POC ABG O2 Sat (90-95) % Piotr Test VBG pH (7.36-7.41) VBG pCO2 (38-50) mmHg VBG pO2 mmHg VBG HCO3 mmol/L VBG O2 Saturation % VBG Base Excess mEq/L Barometric Pressure mm/Hg O2 Delivery Device POC O2 Rate Minute Ventilation POC FiO2 % Tidal Volume PEEP POC Sodium (135-144) mmol/L Sodium (136-145) mmol/L POC Potassium (3.3-5.0) mmol/L Potassium (3.5-5.1) mmol/L POC Chloride (101-112) mmol/L Chloride (98-107) mmol/L Carbon Dioxide (21-32) mmol/L POC Total CO2 (24-31) mmol/L Anion Gap (3-11) POC Anion Gap (16-25) mmol/L POC BUN (7-18) mg/dl BUN (7-18) mg/dl Creatinine (0.6-1.4) mg/dl POC Creatinine (0.6-1.3) mg/dl Est Cr Clr Drug Dosing ml/min Est GFR ( Amer) Est GFR (Non-Af Amer) BUN/Creatinine Ratio (10-20) Glucose (70-99) mg/dl POC Glucose (other) (70-99) mg/dl Estimat Average Glucose mg/dl Hemoglobin A1c (4.5-5.6) % Lactate (0.4-2.0) mmol/L Calcium (8.5-10.1) mg/dl POC Ioniz Calcium Sukhdeep (1.12-1.32) mmol/l Ionized Calcium (1.12-1.32) mmol/L Phosphorus (2.5-4.9) mg/dl Magnesium (1.8-2.4) mg/dl Total Bilirubin (0.2-1) mg/dl Direct Bilirubin (0-0.2) mg/dl GGT Pending AST (15-37) U/L ALT (12-78) U/L Alkaline Phosphatase (45-117) U/L Lactate Dehydrogenase (87-241) U/L CK-MB (CK-2) (0.5-3.6) ng/ml Troponin I (0-0.045) ng/ml Total Protein (6.4-8.2) gm/dl Albumin (3.4-5.0) gm/dl Globulin (2.5-4.0) gm/dl Albumin/Globulin Ratio (0.9-2) Amylase (25-115) U/L Lipase (73-393) U/L Procalcitonin 0.15 (0-0.5) ng/ml Nasal Screen MRSA (PCR) (Negative) COVID-19 Eval Order SARS-CoV-2, RNA, NAAT (NEGATIVE) Blood Type Blood Type Recheck Antibody Screen Crossmatch ABG pre apnea test at 0704: pH: 7.421 PCO2 39.4 PO2 181 Oxygen saturation 100% ABG post apnea test at 0720 pH: 7. 270 PCO2 60 PO2 84 Oxygen saturation 94% Diagnostic Findings IMPRESSION: 1. Large intraparenchymal hematoma centered within the left cerebellar hemisphere crosses the midline and overall measures up to 5.4 cm. Large amount of associated edema is noted with effacement of the fourth ventricle and cerebellar tonsillar herniation. 2. Diffuse blurring of the lopez-white interface suggests hypoxicischemic brain injury. 3. Mild prominence of the lateral and third ventricles is suspicious for developing hydrocephalus. 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
--- NOTE | 2020-12-24 07:46 | Death Pronouncement Note ---
Date of Service December 24, 2020 Pronouncement Note Admission Date Admission Date: December 23, 2020 Date and Time of Date of : 12/24/20 Time of : 07:20 PCOD Preliminary cause of : Brainstem herniation Contributing Factors (1) Brainstem herniation: (2) Intracranial hemorrhage: (3) Cardiac arrest: (4) Hypertension: (5) Sleep apnea: Hospital Course Hospital Course: Patient was admitted through the emergency department as a CODE BLUE he was found to have a significant intracranial hemorrhage and subsequent brainstem herniation and mild hydrocephalus. Patient was found to fulfill brain criteria at 0720 on December 24, 2020. Family has opted to proceed with organ donation. Summary Additional details: Please see critical care examination note on December 24, 2020 for brain examination criteria Additional Data Confirmation of : no respirations, pupils fixed and dilated and other (No spontaneous respirations on apnea testing) Family: at bedside Attending/PCP notified?: Yes Attending physician: Karen Urrutia, DO Was code activated?: No Autopsy requested?: No rate examiner notified?: Yes Organ bank notified?: Yes Advance directives: No Coding Level of Care Code None Diagnoses Brainstem herniation G93.5 Intracranial hemorrhage I62.9 Cardiac arrest I46.9 Hypertension I10 Sleep apnea G47.30
--- NOTE | 2020-12-24 08:05 | XRay Report ---
XR chest 1V portable HISTORY: s/p RIGHT IJ COMPARISON: Chest 12/23/2020. FINDINGS: Interval placement of a right jugular central venous catheter which terminates at the expec juan josé location of the proximal SVC. No pneumothorax. No pleural effusions. The heart remains mildly enl arged. Nasogastric tube terminates below the diaphragm. The tip is not included on this study. Endotr acheal tube terminates approximately 5.4 cm from the paco. Bilateral hazy airspace opacities, right greater than left have progressed. IMPRESSION: 1. Interval placement of a right internal jugular central venous catheter which terminates at the SVC . No pneumothorax. 2. Endotracheal tube terminates 5.4 cm from the paco. This could be advanced by 1 to 2 cm. 3. Bilateral airspace opacities have slightly progressed. ACT 112: Negative or not required by law. Electronically signed by: Adalid Nino M.D. 12/24/2020 8:04 AM
[2020-12-24] MEDS: NSS + 20MEQ KCL 20 MEQ/1,000 ML BAG IV SCH (08:17)
[2020-12-24] MEDS: FAMOTIDINE 20 MG in SYRINGE 3 ML IV SCH (08:23)
[2020-12-24 08:27] LABS: Appearance Urine Turbid (Clear); Blood Urine Trace (Negative); Epithelial Cell Urine Auto >30 /lpf (0-5); Glucose Urine UA 1+ (Negative); Ketones Urine Trace (Negative); Leukocyte Esterase Urine 1+ (Negative); Nitrite Urine Positive (Negative); Protein Urine 3+ (Negative); Specific Gravity Urine 1.025 (1.000-1.030); Urobilinogen Urine Negative (Negative)
--- NOTE | 2020-12-24 08:28 | Progress Note ---
Date of Service December 24, 2020 Assessment & Plan (1) Brainstem : (2) Intracranial hemorrhage: (3) Cardiac arrest: (4) Brainstem herniation: I was asked to review the chart and Brain note of Dr. Michele. Vital signs are within acceptable parameters for Brain Criteria (BP 115/83, T37.4) CT Head was reviewed and showed large left cerebellar hemisphere intracerebral hemorrhage, with shift, brainstem herniation, and blurring of lopez-white junction revealing severe hypoxi/ischmia Physical exam showed no spontaneous movement, fixed dilated pupils, no spontaneous breathing with an apnea test, no evidence for brainstem function (including calorics), no reflexes or movement to deep pain. Therefore, this patient fulfills standard criteria for Brain clinically, by my review of the chart. Overall, I spent a total of 20min reviewing films and records -Mayito Martinez MD, 12-24-2020, @[id number] Admission and Anticipated Discharge Date Admission Date: December 23, 2020 Results & Data ([facility]) Vital Signs (Past 12 Hours) Vital Signs Temp Pulse Resp BP BP Pulse Ox 12/24/20 06:45 37.4 C 97 H 99 12/24/20 06:40 37.4 C 97 H 99 12/24/20 06:35 37.4 C 97 H 99 12/24/20 06:30 37.4 C 98 H 99 12/24/20 06:25 37.3 C 98 H 99 12/24/20 06:20 37.3 C 98 H 100 12/24/20 06:15 37.3 C 98 H 100 12/24/20 06:10 37.3 C 98 H 99 12/24/20 06:05 37.3 C 98 H 99 12/24/20 06:00 37.3 C 98 H 99 12/24/20 05:57 37.3 C 99 H 115/83 99 12/24/20 05:55 37.3 C 98 H 97 12/24/20 05:50 37.2 C 98 H 98 12/24/20 05:45 37.2 C 97 H 98 12/24/20 05:40 37.2 C 96 H 98 12/24/20 05:35 37.2 C 96 H 98 12/24/20 05:30 37.2 C 96 H 97 12/24/20 05:25 37.1 C 96 H 98 12/24/20 05:20 37.1 C 96 H 98 12/24/20 05:15 37.1 C 96 H 98 12/24/20 05:10 37.1 C 96 H 97 12/24/20 05:05 37.0 C 97 H 98 12/24/20 05:00 37.0 C 96 H 97 12/24/20 04:57 37.0 C 96 H 99/70 L 98 12/24/20 04:55 37.0 C 96 H 98 12/24/20 04:50 37.0 C 98 H 98 12/24/20 04:45 36.9 C 95 H 97 12/24/20 04:40 36.9 C 96 H 98 12/24/20 04:35 36.9 C 96 H 98 12/24/20 04:30 36.9 C 96 H 98 12/24/20 04:25 36.8 C 95 H 98 12/24/20 04:20 36.8 C 96 H 98 12/24/20 04:15 36.8 C 96 H 98 12/24/20 04:10 36.7 C 94 H 100 12/24/20 04:05 36.7 C 94 H 100 12/24/20 04:04 94 H 24 100 12/24/20 04:00 36.7 C 95 H 100 12/24/20 03:57 36.6 C 94 H 92/71 L 100 12/24/20 03:55 36.6 C 95 H 100 12/24/20 03:50 36.6 C 95 H 99 12/24/20 03:47 36.6 C 95 H 98/78 L 100 12/24/20 03:45 36.5 C 96 H 99 12/24/20 03:40 36.5 C 97 H 98 12/24/20 03:38 36.5 C 99 H 84/52 L 100 12/24/20 03:35 36.5 C 91 H 100 12/24/20 03:30 36.4 C L 93 H 100 12/24/20 03:27 36.4 C L 92 H 111/76 100 12/24/20 03:25 36.4 C L 93 H 100 12/24/20 03:20 36.3 C L 93 H 100 12/24/20 03:17 36.3 C L 94 H 97/79 L 99 12/24/20 03:15 36.3 C L 94 H 100 12/24/20 03:10 36.2 C L 94 H 100 12/24/20 03:07 36.2 C L 94 H 93/74 L 100 12/24/20 03:05 36.2 C L 94 H 100 12/24/20 03:00 36.2 C L 95 H 100 12/24/20 02:57 36.1 C L 95 H 104/70 100 12/24/20 02:55 36.1 C L 95 H 100 12/24/20 02:50 36.1 C L 93 H 99 12/24/20 02:47 36.1 C L 93 H 99/80 L 99 12/24/20 02:45 36.0 C L 94 H 99 12/24/20 02:40 36.0 C L 93 H 99 12/24/20 02:37 36.0 C L 93 H 103/85 99 12/24/20 02:36 36.0 C L 93 H 99 12/24/20 00:50 35.1 C L 104 H 119/86 98 12/24/20 00:45 35.0 C L 104 H 98 12/24/20 00:35 34.9 C L 102 H 122/89 99 12/24/20 00:30 34.9 C L 94 H 98 12/24/20 00:20 34.8 C L 103 H 135/94 97 12/24/20 00:15 34.7 C L 103 H 98 12/24/20 00:05 34.6 C L 103 H 134/97 98 12/24/20 00:00 34.6 C L 104 H 98 12/23/20 23:50 34.5 C L 103 H 139/100 96 12/23/20 23:45 34.4 C L 104 H 97 12/23/20 23:35 34.4 C L 104 H 135/103 H 97 12/23/20 23:30 34.3 C L 103 H 96 12/23/20 23:20 34.2 C L 103 H 139/98 96 12/23/20 23:15 34.2 C L 103 H 23 96 12/23/20 23:05 34.1 C L 105 H 141/99 H 96 12/23/20 23:00 34.1 C L 105 H 96 12/23/20 22:50 34.0 C L 107 H 22 140/100 96 12/23/20 22:48 34.0 C L 107 H 139/100 94 12/23/20 22:45 34.0 C L 107 H 95 12/23/20 22:35 34.0 C L 106 H 143/101 H 95 12/23/20 22:31 34.0 C L 105 H 96 12/23/20 22:29 34.0 C L 105 H 158/105 H 95 12/23/20 22:27 34.0 C L 105 H 163/109 H 95 12/23/20 22:20 34.0 C L 106 H 172/118 H 95 12/23/20 22:15 34.0 C L 103 H 95 12/23/20 22:10 34.3 C L 139/98 96 12/23/20 22:03 114 H 105/86 12/23/20 22:01 113 H 12/23/20 21:35 102 H 119/94 95 12/23/20 21:30 102 H 124/85 96 12/23/20 21:25 102 H 122/91 95 12/23/20 21:20 101 H 123/82 93 12/23/20 21:15 102 H 121/79 93 12/23/20 21:10 102 H 113/84 92 12/23/20 21:05 102 H 115/82 95 12/23/20 20:55 102 H 109/78 94 12/23/20 20:50 102 H 106/79 92 12/23/20 20:45 102 H 108/76 92 12/23/20 20:40 102 H 112/77 91 12/23/20 20:35 103 H 107/75 92 12/23/20 20:30 104 H 87/67 L 92 12/23/20 20:25 102 H 100/70 93 12/23/20 20:20 102 H 98/71 L 93 PG Care Time/CCT Total # of Minutes Spent Total Time Spent with Patient: Total time spent is greater than 50% in coordination of care (as documented) at patient's floor/unit and/or counseling patient: Coding Level of Care Code 54909 Subseq Hosp Care Lvl 1 Diagnoses Brainstem G93.82 Intracranial hemorrhage I62.9 Cardiac arrest I46.9 Brainstem herniation G93.5
[2020-12-24 08:29] LABS: Bilirubin Urine 1+ (Negative); Color Urine Amber
[2020-12-24 08:38] LABS: Bacteria Urine Automated 1+ (Negative); RBC Urine Automated 0-4 /hpf (0-4)
[2020-12-24] MEDS: INSULIN ASPART 100 UNITS/ML 3 ML PEN SC SCH ×2 (08:47→10:55)
[2020-12-24] MEDS ORDERED: METHYLPREDNISOLONE IV SCH ×2 (09:00)
[2020-12-24] MEDS ORDERED: DEXTROSE 50% 50 ML SYRINGE IV ONE (09:00)
[2020-12-24] MEDS ORDERED: INSULIN HUMAN REGULAR PER IV ONE (09:00)
[2020-12-24] MEDS ORDERED: VASOPRESSIN IV SCH (09:00)
[2020-12-24] MEDS ORDERED: SODIUM CHLORIDE 0.9% IV SCH (09:00)
[2020-12-24] MEDS ORDERED: DEXTROSE 5% IV SCH (09:00)
[2020-12-24] MEDS ORDERED: LEVOTHYROXINE SODIUM IV SCH (09:00)
[2020-12-24] MEDS ORDERED: ICU PROTOCOL FOR HYPERGLYCEMIA PRN (09:00)
--- NOTE | 2020-12-24 09:13 | Progress Note ---
Date of Service December 24, 2020 Assessment & Plan (1) Brainstem : Based on examination in conjunction with Dr. Michele, and pCO2 of 60 with no spontaneous respirations during apnea testing. Patient meets criteria for brain . Time of : 719 (2) Intracranial hemorrhage: (3) Brainstem herniation: Admission and Anticipated Discharge Date Admission Date: December 23, 2020 Supervising Physician Co-Signing Physician Notes Dr. Powell was resident physician during care of patient. I separately evaluated patient for villeda portions of the history and the exam. I was present during the critical portion of medical decision making, and I discussed the case with the resident. I agree with the findings and plan. Subjective Large intracranial hemorrhage with evidence of herniation demonstrated on CT head overnight. Based off this family would like to proceed with organ donatio n. [facility] contacted and at bedside. Review of Systems Review of Systems: Unobtainable Physical Exam Physical Exam: Neurologic examination conducted in conjunction with Dr. Michele: -Patient with no spontaneous movement, lower response to noxious stimuli in all 4 extremities -Pupils approximately 6 mm dilated, no response to bright light, no corneal reflex, no doll's eyes -Ear canals patent bilaterally, no response to cold quality stimulation bilaterally -Negative jar reflex, negative cough reflex, negative gag reflex -No spontaneous breaths during apnea testing Results & Data ([facility]) Vital Signs (Past 12 Hours) Vital Signs Temp Pulse Resp BP BP Pulse Ox 12/24/20 07:19 106 H 24 97 12/24/20 06:45 37.4 C 97 H 99 12/24/20 06:40 37.4 C 97 H 99 12/24/20 06:35 37.4 C 97 H 99 12/24/20 06:30 37.4 C 98 H 99 12/24/20 06:25 37.3 C 98 H 99 12/24/20 06:20 37.3 C 98 H 100 12/24/20 06:15 37.3 C 98 H 100 12/24/20 06:10 37.3 C 98 H 99 12/24/20 06:05 37.3 C 98 H 99 12/24/20 06:00 37.3 C 98 H 99 12/24/20 05:57 37.3 C 99 H 115/83 99 12/24/20 05:55 37.3 C 98 H 97 12/24/20 05:50 37.2 C 98 H 98 12/24/20 05:45 37.2 C 97 H 98 12/24/20 05:40 37.2 C 96 H 98 12/24/20 05:35 37.2 C 96 H 98 12/24/20 05:30 37.2 C 96 H 97 12/24/20 05:25 37.1 C 96 H 98 12/24/20 05:20 37.1 C 96 H 98 12/24/20 05:15 37.1 C 96 H 98 12/24/20 05:10 37.1 C 96 H 97 12/24/20 05:05 37.0 C 97 H 98 12/24/20 05:00 37.0 C 96 H 97 12/24/20 04:57 37.0 C 96 H 99/70 L 98 12/24/20 04:55 37.0 C 96 H 98 12/24/20 04:50 37.0 C 98 H 98 12/24/20 04:45 36.9 C 95 H 97 12/24/20 04:40 36.9 C 96 H 98 12/24/20 04:35 36.9 C 96 H 98 12/24/20 04:30 36.9 C 96 H 98 12/24/20 04:25 36.8 C 95 H 98 12/24/20 04:20 36.8 C 96 H 98 12/24/20 04:15 36.8 C 96 H 98 12/24/20 04:10 36.7 C 94 H 100 12/24/20 04:05 36.7 C 94 H 100 12/24/20 04:04 94 H 24 100 12/24/20 04:00 36.7 C 95 H 100 12/24/20 03:57 36.6 C 94 H 92/71 L 100 12/24/20 03:55 36.6 C 95 H 100 12/24/20 03:50 36.6 C 95 H 99 12/24/20 03:47 36.6 C 95 H 98/78 L 100 12/24/20 03:45 36.5 C 96 H 99 12/24/20 03:40 36.5 C 97 H 98 12/24/20 03:38 36.5 C 99 H 84/52 L 100 12/24/20 03:35 36.5 C 91 H 100 12/24/20 03:30 36.4 C L 93 H 100 12/24/20 03:27 36.4 C L 92 H 111/76 100 12/24/20 03:25 36.4 C L 93 H 100 12/24/20 03:20 36.3 C L 93 H 100 12/24/20 03:17 36.3 C L 94 H 97/79 L 99 12/24/20 03:15 36.3 C L 94 H 100 12/24/20 03:10 36.2 C L 94 H 100 12/24/20 03:07 36.2 C L 94 H 93/74 L 100 12/24/20 03:05 36.2 C L 94 H 100 12/24/20 03:00 36.2 C L 95 H 100 12/24/20 02:57 36.1 C L 95 H 104/70 100 12/24/20 02:55 36.1 C L 95 H 100 12/24/20 02:50 36.1 C L 93 H 99 12/24/20 02:47 36.1 C L 93 H 99/80 L 99 12/24/20 02:45 36.0 C L 94 H 99 12/24/20 02:40 36.0 C L 93 H 99 12/24/20 02:37 36.0 C L 93 H 103/85 99 12/24/20 02:36 36.0 C L 93 H 99 12/24/20 00:50 35.1 C L 104 H 119/86 98 12/24/20 00:45 35.0 C L 104 H 98 12/24/20 00:35 34.9 C L 102 H 122/89 99 12/24/20 00:30 34.9 C L 94 H 98 12/24/20 00:20 34.8 C L 103 H 135/94 97 12/24/20 00:15 34.7 C L 103 H 98 12/24/20 00:05 34.6 C L 103 H 134/97 98 12/24/20 00:00 34.6 C L 104 H 98 12/23/20 23:50 34.5 C L 103 H 139/100 96 12/23/20 23:45 34.4 C L 104 H 97 12/23/20 23:35 34.4 C L 104 H 135/103 H 97 12/23/20 23:30 34.3 C L 103 H 96 12/23/20 23:20 34.2 C L 103 H 139/98 96 12/23/20 23:15 34.2 C L 103 H 23 96 12/23/20 23:05 34.1 C L 105 H 141/99 H 96 12/23/20 23:00 34.1 C L 105 H 96 12/23/20 22:50 34.0 C L 107 H 22 140/100 96 12/23/20 22:48 34.0 C L 107 H 139/100 94 12/23/20 22:45 34.0 C L 107 H 95 12/23/20 22:35 34.0 C L 106 H 143/101 H 95 12/23/20 22:31 34.0 C L 105 H 96 12/23/20 22:29 34.0 C L 105 H 158/105 H 95 12/23/20 22:27 34.0 C L 105 H 163/109 H 95 12/23/20 22:20 34.0 C L 106 H 172/118 H 95 12/23/20 22:15 34.0 C L 103 H 95 12/23/20 22:10 34.3 C L 139/98 96 12/23/20 22:03 114 H 105/86 12/23/20 22:01 113 H 12/23/20 21:35 102 H 119/94 95 12/23/20 21:30 102 H 124/85 96 12/23/20 21:25 102 H 122/91 95 12/23/20 21:20 101 H 123/82 93 12/23/20 21:15 102 H 121/79 93 12/23/20 21:10 102 H 113/84 92 Laboratory Results 12/24/20 12/24/20 12/24/20 Range/Units 08:39 08:00 07:20 WBC (4.8-10.8) K/uL RBC (4.7-6.1) M/uL Hgb (14.0-18.0) g/dL POC Hgb 17.7 (14.0-18.0) g/dl Hct (42-52) % POC Hct 52 (42-52) % MCV (80-100) fL MCH (25-34) pg MCHC (32-36) g/dL RDW Std Deviation (36.4-46.3) fL RDW Coeff of Kev (11.5-14.5) % Plt Count (130-400) K/uL MPV (7.4-10.4) fL Immature Gran % (Auto) % Neut % (Auto) % Lymph % (Auto) % [place] % (Auto) % Eos % (Auto) % Baso % (Auto) % Neut # (Auto) (1.4-6.5) K/uL Lymph # (Auto) (1.2-3.4) K/uL [place] # (Auto) (0.11-0.59) K/uL Eos # (Auto) (0-0.5) K/uL Baso # (Auto) (0-0.2) K/uL Immature Gran # (Auto) (0.00-0.02) K/uL Blood Smear Review PT (9.0-12.0) Seconds INR (0.9-1.1) APTT (21.0-31.0) Seconds PTT Ratio Sample Site Art Line POC pH 7.27 L (7.35-7.45) POC pCO2 60 H (35-46) mmHg POC pO2 84 (80-95) mmHg POC HCO3 28 H (19-24) ashley/L POC Base Excess 1.0 (-9-1.8) ashley/L ABG pH (Temp Correct) 7.270 L (7.35-7.45) ABG pCO2 (Temp Corrct 60 H (35-46) mmHg POC ABG pO2 at Pt Temp 84 POC ABG O2 Sat 94.0 (90-95) % Piotr Test NA VBG pH (7.36-7.41) VBG pCO2 (38-50) mmHg VBG pO2 mmHg VBG HCO3 mmol/L VBG O2 Saturation % VBG Base Excess mEq/L Barometric Pressure mm/Hg O2 Delivery Device Other POC O2 Rate Minute Ventilation POC FiO2 100 % Tidal Volume PEEP POC Sodium 141 (135-144) mmol/L Sodium (136-145) mmol/L POC Potassium 3.5 (3.3-5.0) mmol/L Potassium (3.5-5.1) mmol/L POC Chloride (101-112) mmol/L Chloride (98-107) mmol/L Carbon Dioxide (21-32) mmol/L POC Total CO2 29 (24-31) mmol/L Anion Gap (3-11) POC Anion Gap (16-25) mmol/L POC BUN (7-18) mg/dl BUN (7-18) mg/dl Creatinine (0.6-1.4) mg/dl POC Creatinine (0.6-1.3) mg/dl Est Cr Clr Drug Dosing ml/min Est GFR ( Amer) Est GFR (Non-Af Amer) BUN/Creatinine Ratio (10-20) Glucose (70-99) mg/dl POC Glucose (other) 153 H (70-99) mg/dl Estimat Average Glucose mg/dl Hemoglobin A1c (4.5-5.6) % Lactate (0.4-2.0) mmol/L Calcium (8.5-10.1) mg/dl POC Ioniz Calcium Sukhdeep (1.12-1.32) mmol/l Ionized Calcium (1.12-1.32) mmol/L Phosphorus (2.5-4.9) mg/dl Magnesium (1.8-2.4) mg/dl Total Bilirubin (0.2-1) mg/dl Direct Bilirubin (0-0.2) mg/dl GGT AST (15-37) U/L ALT (12-78) U/L Alkaline Phosphatase (45-117) U/L Lactate Dehydrogenase (87-241) U/L CK-MB (CK-2) (0.5-3.6) ng/ml Troponin I (0-0.045) ng/ml Total Protein (6.4-8.2) gm/dl Albumin (3.4-5.0) gm/dl Globulin (2.5-4.0) gm/dl Albumin/Globulin Ratio (0.9-2) Amylase (25-115) U/L Lipase (73-393) U/L Procalcitonin (0-0.5) ng/ml Urine Color Susan Urine Appearance Turbid A (Clear) Urine pH 5.0 (4.5-7.5) Ur Specific [place] 1.025 (1.000-1.030) Urine Protein 3+ H (Negative) Urine Glucose (UA) 1+ H (Negative) Urine Ketones Trace H (Negative) Urine Blood Trace H (Negative) Urine Nitrite Positive A (Negative) Urine Bilirubin 1+ H (Negative) Urine Urobilinogen Negative (Negative) Ur Leukocyte Esterase 1+ H (Negative) Urine WBC (Auto) 10-30 H (0-5) /hpf Urine RBC (Auto) 0-4 (0-4) /hpf U Hyaline Cast (Auto) 1-5 (0-5) /lpf U Epithel Cells (Auto) >30 H (0-5) /lpf Urine Bacteria (Auto) 1+ H (Negative) Ur Renal Epithelial Cell Not Reportable Granular Casts 5-10 H (0) /lpf WBC Casts 1-5 H (0) /lpf Urine Yeast Not Reportable Nasal Screen MRSA (PCR) (Negative) COVID-19 Eval Order SARS-CoV-2, RNA, NAAT (NEGATIVE) Blood Type Blood Type Recheck Antibody Screen Crossmatch 12/24/20 12/24/20 12/24/20 Range/Units 07:04 06:36 04:32 WBC (4.8-10.8) K/uL RBC (4.7-6.1) M/uL Hgb (14.0-18.0) g/dL POC Hgb 17.3 (14.0-18.0) g/dl Hct (42-52) % POC Hct 51 (42-52) % MCV (80-100) fL MCH (25-34) pg MCHC (32-36) g/dL RDW Std Deviation (36.4-46.3) fL RDW Coeff of Kev (11.5-14.5) % Plt Count (130-400) K/uL MPV (7.4-10.4) fL Immature Gran % (Auto) % Neut % (Auto) % Lymph % (Auto) % [place] % (Auto) % Eos % (Auto) % Baso % (Auto) % Neut # (Auto) (1.4-6.5) K/uL Lymph # (Auto) (1.2-3.4) K/uL [place] # (Auto) (0.11-0.59) K/uL Eos # (Auto) (0-0.5) K/uL Baso # (Auto) (0-0.2) K/uL Immature Gran # (Auto) (0.00-0.02) K/uL Blood Smear Review PT (9.0-12.0) Seconds INR (0.9-1.1) APTT (21.0-31.0) Seconds PTT Ratio Sample Site Art Line POC pH 7.42 (7.35-7.45) POC pCO2 39 (35-46) mmHg POC pO2 181 H (80-95) mmHg POC HCO3 26 H (19-24) ashley/L POC Base Excess 1.0 (-9-1.8) ashley/L ABG pH (Temp Correct) 7.421 (7.35-7.45) ABG pCO2 (Temp Corrct 39 (35-46) mmHg POC ABG pO2 at Pt Temp 181 POC ABG O2 Sat 100.0 H (90-95) % Piotr Test NA VBG pH (7.36-7.41) VBG pCO2 (38-50) mmHg VBG pO2 mmHg VBG HCO3 mmol/L VBG O2 Saturation % VBG Base Excess mEq/L Barometric Pressure mm/Hg O2 Delivery Device Ventilator POC O2 Rate 24 Minute Ventilation POC FiO2 100 % Tidal Volume 500 PEEP 5 POC Sodium 139 (135-144) mmol/L Sodium (136-145) mmol/L POC Potassium 3.6 (3.3-5.0) mmol/L Potassium (3.5-5.1) mmol/L POC Chloride (101-112) mmol/L Chloride (98-107) mmol/L Carbon Dioxide (21-32) mmol/L POC Total CO2 27 (24-31) mmol/L Anion Gap (3-11) POC Anion Gap (16-25) mmol/L POC BUN (7-18) mg/dl BUN (7-18) mg/dl Creatinine (0.6-1.4) mg/dl POC Creatinine (0.6-1.3) mg/dl Est Cr Clr Drug Dosing ml/min Est GFR ( Amer) Est GFR (Non-Af Amer) BUN/Creatinine Ratio (10-20) Glucose (70-99) mg/dl POC Glucose (other) 151 H 145 H (70-99) mg/dl Estimat Average Glucose mg/dl Hemoglobin A1c (4.5-5.6) % Lactate (0.4-2.0) mmol/L Calcium (8.5-10.1) mg/dl POC Ioniz Calcium Sukhdeep (1.12-1.32) mmol/l Ionized Calcium (1.12-1.32) mmol/L Phosphorus (2.5-4.9) mg/dl Magnesium (1.8-2.4) mg/dl Total Bilirubin (0.2-1) mg/dl Direct Bilirubin (0-0.2) mg/dl GGT AST (15-37) U/L ALT (12-78) U/L Alkaline Phosphatase (45-117) U/L Lactate Dehydrogenase (87-241) U/L CK-MB (CK-2) (0.5-3.6) ng/ml Troponin I (0-0.045) ng/ml Total Protein (6.4-8.2) gm/dl Albumin (3.4-5.0) gm/dl Globulin (2.5-4.0) gm/dl Albumin/Globulin Ratio (0.9-2) Amylase (25-115) U/L Lipase (73-393) U/L Procalcitonin (0-0.5) ng/ml Urine Color Urine Appearance (Clear) Urine pH (4.5-7.5) Ur Specific [place] (1.000-1.030) Urine Protein (Negative) Urine Glucose (UA) (Negative) Urine Ketones (Negative) Urine Blood (Negative) Urine Nitrite (Negative) Urine Bilirubin (Negative) Urine Urobilinogen (Negative) Ur Leukocyte Esterase (Negative) Urine WBC (Auto) (0-5) /hpf Urine RBC (Auto) (0-4) /hpf U Hyaline Cast (Auto) (0-5) /lpf U Epithel Cells (Auto) (0-5) /lpf Urine Bacteria (Auto) (Negative) Ur Renal Epithelial Cell Granular Casts (0) /lpf WBC Casts (0) /lpf Urine Yeast Nasal Screen MRSA (PCR) (Negative) COVID-19 Eval Order SARS-CoV-2, RNA, NAAT (NEGATIVE) Blood Type Blood Type Recheck Antibody Screen Crossmatch 12/24/20 12/24/20 12/24/20 Range/Units 04:23 04:23 04:23 WBC (4.8-10.8) K/uL RBC (4.7-6.1) M/uL Hgb (14.0-18.0) g/dL POC Hgb (14.0-18.0) g/dl Hct (42-52) % POC Hct (42-52) % MCV (80-100) fL MCH (25-34) pg MCHC (32-36) g/dL RDW Std Deviation (36.4-46.3) fL RDW Coeff of Kev (11.5-14.5) % Plt Count (130-400) K/uL MPV (7.4-10.4) fL Immature Gran % (Auto) % Neut % (Auto) % Lymph % (Auto) % [place] % (Auto) % Eos % (Auto) % Baso % (Auto) % Neut # (Auto) (1.4-6.5) K/uL Lymph # (Auto) (1.2-3.4) K/uL [place] # (Auto) (0.11-0.59) K/uL Eos # (Auto) (0-0.5) K/uL Baso # (Auto) (0-0.2) K/uL Immature Gran # (Auto) (0.00-0.02) K/uL Blood Smear Review PT (9.0-12.0) Seconds INR (0.9-1.1) APTT (21.0-31.0) Seconds PTT Ratio Sample Site POC pH (7.35-7.45) POC pCO2 (35-46) mmHg POC pO2 (80-95) mmHg POC HCO3 (19-24) ashley/L POC Base Excess (-9-1.8) ashley/L ABG pH (Temp Correct) (7.35-7.45) ABG pCO2 (Temp Corrct (35-46) mmHg POC ABG pO2 at Pt Temp POC ABG O2 Sat (90-95) % Piotr Test VBG pH (7.36-7.41) VBG pCO2 (38-50) mmHg VBG pO2 mmHg VBG HCO3 mmol/L VBG O2 Saturation % VBG Base Excess mEq/L Barometric Pressure mm/Hg O2 Delivery Device POC O2 Rate Minute Ventilation POC FiO2 % Tidal Volume PEEP POC Sodium (135-144) mmol/L Sodium (136-145) mmol/L POC Potassium (3.3-5.0) mmol/L Potassium (3.5-5.1) mmol/L POC Chloride (101-112) mmol/L Chloride (98-107) mmol/L Carbon Dioxide (21-32) mmol/L POC Total CO2 (24-31) mmol/L Anion Gap (3-11) POC Anion Gap (16-25) mmol/L POC BUN (7-18) mg/dl BUN (7-18) mg/dl Creatinine (0.6-1.4) mg/dl POC Creatinine (0.6-1.3) mg/dl Est Cr Clr Drug Dosing ml/min Est GFR ( Amer) Est GFR (Non-Af Amer) BUN/Creatinine Ratio (10-20) Glucose (70-99) mg/dl POC Glucose (other) (70-99) mg/dl Estimat Average Glucose mg/dl Hemoglobin A1c (4.5-5.6) % Lactate (0.4-2.0) mmol/L Calcium (8.5-10.1) mg/dl POC Ioniz Calcium Sukhdeep (1.12-1.32) mmol/l Ionized Calcium 1.08 L (1.12-1.32) mmol/L Phosphorus (2.5-4.9) mg/dl Magnesium (1.8-2.4) mg/dl Total Bilirubin (0.2-1) mg/dl Direct Bilirubin (0-0.2) mg/dl GGT AST (15-37) U/L ALT (12-78) U/L Alkaline Phosphatase (45-117) U/L Lactate Dehydrogenase 523 H (87-241) U/L CK-MB (CK-2) (0.5-3.6) ng/ml Troponin I (0-0.045) ng/ml Total Protein (6.4-8.2) gm/dl Albumin (3.4-5.0) gm/dl Globulin (2.5-4.0) gm/dl Albumin/Globulin Ratio (0.9-2) Amylase (25-115) U/L Lipase (73-393) U/L Procalcitonin (0-0.5) ng/ml Urine Color Urine Appearance (Clear) Urine pH (4.5-7.5) Ur Specific [place] (1.000-1.030) Urine Protein (Negative) Urine Glucose (UA) (Negative) Urine Ketones (Negative) Urine Blood (Negative) Urine Nitrite (Negative) Urine Bilirubin (Negative) Urine Urobilinogen (Negative) Ur Leukocyte Esterase (Negative) Urine WBC (Auto) (0-5) /hpf Urine RBC (Auto) (0-4) /hpf U Hyaline Cast (Auto) (0-5) /lpf U Epithel Cells (Auto) (0-5) /lpf Urine Bacteria (Auto) (Negative) Ur Renal Epithelial Cell Granular Casts (0) /lpf WBC Casts (0) /lpf Urine Yeast Nasal Screen MRSA (PCR) (Negative) COVID-19 Eval Order SARS-CoV-2, RNA, NAAT (NEGATIVE) Blood Type Blood Type Recheck O Positive Antibody Screen Crossmatch 12/24/20 12/24/20 12/24/20 Range/Units 04:23 04:23 04:23 WBC 35.49 H* (4.8-10.8) K/uL RBC 5.74 (4.7-6.1) M/uL Hgb 16.7 (14.0-18.0) g/dL POC Hgb (14.0-18.0) g/dl Hct 50.6 (42-52) % POC Hct (42-52) % MCV 88.2 (80-100) fL MCH 29.1 (25-34) pg MCHC 33.0 (32-36) g/dL RDW Std Deviation 47.3 H (36.4-46.3) fL RDW Coeff of Kev 14.7 H (11.5-14.5) % Plt Count 246 (130-400) K/uL MPV 12.2 H (7.4-10.4) fL Immature Gran % (Auto) 0.7 % Neut % (Auto) 90.3 % Lymph % (Auto) 3.8 % [place] % (Auto) 5.1 % Eos % (Auto) 0.0 % Baso % (Auto) 0.1 % Neut # (Auto) 32.08 H (1.4-6.5) K/uL Lymph # (Auto) 1.34 (1.2-3.4) K/uL [place] # (Auto) 1.80 H (0.11-0.59) K/uL Eos # (Auto) 0.01 (0-0.5) K/uL Baso # (Auto) 0.02 (0-0.2) K/uL Immature Gran # (Auto) 0.24 H (0.00-0.02) K/uL Blood Smear Review PT (9.0-12.0) Seconds INR (0.9-1.1) APTT 24.8 (21.0-31.0) Seconds PTT Ratio 0.9 Sample Site POC pH (7.35-7.45) POC pCO2 (35-46) mmHg POC pO2 (80-95) mmHg POC HCO3 (19-24) ashley/L POC Base Excess (-9-1.8) ashley/L ABG pH (Temp Correct) (7.35-7.45) ABG pCO2 (Temp Corrct (35-46) mmHg POC ABG pO2 at Pt Temp POC ABG O2 Sat (90-95) % Piotr Test VBG pH (7.36-7.41) VBG pCO2 (38-50) mmHg VBG pO2 mmHg VBG HCO3 mmol/L VBG O2 Saturation % VBG Base Excess mEq/L Barometric Pressure mm/Hg O2 Delivery Device POC O2 Rate Minute Ventilation POC FiO2 % Tidal Volume PEEP POC Sodium (135-144) mmol/L Sodium 142 (136-145) mmol/L POC Potassium (3.3-5.0) mmol/L Potassium 3.9 (3.5-5.1) mmol/L POC Chloride (101-112) mmol/L Chloride 110 H (98-107) mmol/L Carbon Dioxide 26 (21-32) mmol/L POC Total CO2 (24-31) mmol/L Anion Gap 6.0 (3-11) POC Anion Gap (16-25) mmol/L POC BUN (7-18) mg/dl BUN 23 H (7-18) mg/dl Creatinine 2.31 H D (0.6-1.4) mg/dl POC Creatinine (0.6-1.3) mg/dl Est Cr Clr Drug Dosing 47.2 ml/min Est GFR ( Amer) 34.5 Est GFR (Non-Af Amer) 29.8 BUN/Creatinine Ratio 9.8 L (10-20) Glucose 145 H (70-99) mg/dl POC Glucose (other) (70-99) mg/dl Estimat Average Glucose mg/dl Hemoglobin A1c (4.5-5.6) % Lactate (0.4-2.0) mmol/L Calcium 8.2 L (8.5-10.1) mg/dl POC Ioniz Calcium Sukhdeep (1.12-1.32) mmol/l Ionized Calcium (1.12-1.32) mmol/L Phosphorus 1.2 L* D (2.5-4.9) mg/dl Magnesium 2.2 (1.8-2.4) mg/dl Total Bilirubin 0.5 (0.2-1) mg/dl Direct Bilirubin 0.1 (0-0.2) mg/dl GGT AST 219 H (15-37) U/L ALT 229 H (12-78) U/L Alkaline Phosphatase 99 (45-117) U/L Lactate Dehydrogenase (87-241) U/L CK-MB (CK-2) 115.0 H (0.5-3.6) ng/ml Troponin I 16.300 H* (0-0.045) ng/ml Total Protein 6.4 (6.4-8.2) gm/dl Albumin 2.7 L (3.4-5.0) gm/dl Globulin (2.5-4.0) gm/dl Albumin/Globulin Ratio (0.9-2) Amylase 95 (25-115) U/L Lipase 111 (73-393) U/L Procalcitonin (0-0.5) ng/ml Urine Color Urine Appearance (Clear) Urine pH (4.5-7.5) Ur Specific [place] (1.000-1.030) Urine Protein (Negative) Urine Glucose (UA) (Negative) Urine Ketones (Negative) Urine Blood (Negative) Urine Nitrite (Negative) Urine Bilirubin (Negative) Urine Urobilinogen (Negative) Ur Leukocyte Esterase (Negative) Urine WBC (Auto) (0-5) /hpf Urine RBC (Auto) (0-4) /hpf U Hyaline Cast (Auto) (0-5) /lpf U Epithel Cells (Auto) (0-5) /lpf Urine Bacteria (Auto) (Negative) Ur Renal Epithelial Cell Granular Casts (0) /lpf WBC Casts (0) /lpf Urine Yeast Nasal Screen MRSA (PCR) (Negative) COVID-19 Eval Order SARS-CoV-2, RNA, NAAT (NEGATIVE) Blood Type Blood Type Recheck Antibody Screen Crossmatch 12/24/20 12/24/20 12/24/20 Range/Units 04:23 04:04 03:48 WBC (4.8-10.8) K/uL RBC (4.7-6.1) M/uL Hgb (14.0-18.0) g/dL POC Hgb 17.7 (14.0-18.0) g/dl Hct (42-52) % POC Hct 52 (42-52) % MCV (80-100) fL MCH (25-34) pg MCHC (32-36) g/dL RDW Std Deviation (36.4-46.3) fL RDW Coeff of Kev (11.5-14.5) % Plt Count (130-400) K/uL MPV (7.4-10.4) fL Immature Gran % (Auto) % Neut % (Auto) % Lymph % (Auto) % [place] % (Auto) % Eos % (Auto) % Baso % (Auto) % Neut # (Auto) (1.4-6.5) K/uL Lymph # (Auto) (1.2-3.4) K/uL [place] # (Auto) (0.11-0.59) K/uL Eos # (Auto) (0-0.5) K/uL Baso # (Auto) (0-0.2) K/uL Immature Gran # (Auto) (0.00-0.02) K/uL Blood Smear Review PT (9.0-12.0) Seconds INR (0.9-1.1) APTT (21.0-31.0) Seconds PTT Ratio Sample Site Art Line POC pH 7.39 (7.35-7.45) POC pCO2 44 (35-46) mmHg POC pO2 242 H (80-95) mmHg POC HCO3 27 H (19-24) ashley/L POC Base Excess 2.0 H (-9-1.8) ashley/L ABG pH (Temp Correct) 7.394 (7.35-7.45) ABG pCO2 (Temp Corrct 44 (35-46) mmHg POC ABG pO2 at Pt Temp 240 POC ABG O2 Sat 100.0 H (90-95) % Piotr Test NA VBG pH (7.36-7.41) VBG pCO2 (38-50) mmHg VBG pO2 mmHg VBG HCO3 mmol/L VBG O2 Saturation % VBG Base Excess mEq/L Barometric Pressure mm/Hg O2 Delivery Device Ventilator POC O2 Rate 24 Minute Ventilation 12.0 POC FiO2 100 % Tidal Volume 500 PEEP 5 POC Sodium 140 (135-144) mmol/L Sodium (136-145) mmol/L POC Potassium 3.7 (3.3-5.0) mmol/L Potassium (3.5-5.1) mmol/L POC Chloride (101-112) mmol/L Chloride (98-107) mmol/L Carbon Dioxide (21-32) mmol/L POC Total CO2 28 (24-31) mmol/L Anion Gap (3-11) POC Anion Gap (16-25) mmol/L POC BUN (7-18) mg/dl BUN (7-18) mg/dl Creatinine (0.6-1.4) mg/dl POC Creatinine (0.6-1.3) mg/dl Est Cr Clr Drug Dosing ml/min Est GFR ( Amer) Est GFR (Non-Af Amer) BUN/Creatinine Ratio (10-20) Glucose (70-99) mg/dl POC Glucose (other) 145 H (70-99) mg/dl Estimat Average Glucose 134 mg/dl Hemoglobin A1c 6.3 H (4.5-5.6) % Lactate (0.4-2.0) mmol/L Calcium (8.5-10.1) mg/dl POC Ioniz Calcium Sukhdeep (1.12-1.32) mmol/l Ionized Calcium (1.12-1.32) mmol/L Phosphorus (2.5-4.9) mg/dl Magnesium (1.8-2.4) mg/dl Total Bilirubin (0.2-1) mg/dl Direct Bilirubin (0-0.2) mg/dl GGT AST (15-37) U/L ALT (12-78) U/L Alkaline Phosphatase (45-117) U/L Lactate Dehydrogenase (87-241) U/L CK-MB (CK-2) (0.5-3.6) ng/ml Troponin I (0-0.045) ng/ml Total Protein (6.4-8.2) gm/dl Albumin (3.4-5.0) gm/dl Globulin (2.5-4.0) gm/dl Albumin/Globulin Ratio (0.9-2) Amylase (25-115) U/L Lipase (73-393) U/L Procalcitonin (0-0.5) ng/ml Urine Color Urine Appearance (Clear) Urine pH (4.5-7.5) Ur Specific [place] (1.000-1.030) Urine Protein (Negative) Urine Glucose (UA) (Negative) Urine Ketones (Negative) Urine Blood (Negative) Urine Nitrite (Negative) Urine Bilirubin (Negative) Urine Urobilinogen (Negative) Ur Leukocyte Esterase (Negative) Urine WBC (Auto) (0-5) /hpf Urine RBC (Auto) (0-4) /hpf U Hyaline Cast (Auto) (0-5) /lpf U Epithel Cells (Auto) (0-5) /lpf Urine Bacteria (Auto) (Negative) Ur Renal Epithelial Cell Granular Casts (0) /lpf WBC Casts (0) /lpf Urine Yeast Nasal Screen MRSA (PCR) (Negative) COVID-19 Eval Order SARS-CoV-2, RNA, NAAT (NEGATIVE) Blood Type Blood Type Recheck Antibody Screen Crossmatch 12/24/20 12/24/20 12/23/20 Range/Units 02:42 01:39 Unknown WBC (4.8-10.8) K/uL RBC (4.7-6.1) M/uL Hgb (14.0-18.0) g/dL POC Hgb (14.0-18.0) g/dl Hct (42-52) % POC Hct (42-52) % MCV (80-100) fL MCH (25-34) pg MCHC (32-36) g/dL RDW Std Deviation (36.4-46.3) fL RDW Coeff of Kev (11.5-14.5) % Plt Count (130-400) K/uL MPV (7.4-10.4) fL Immature Gran % (Auto) % Neut % (Auto) % Lymph % (Auto) % [place] % (Auto) % Eos % (Auto) % Baso % (Auto) % Neut # (Auto) (1.4-6.5) K/uL Lymph # (Auto) (1.2-3.4) K/uL [place] # (Auto) (0.11-0.59) K/uL Eos # (Auto) (0-0.5) K/uL Baso # (Auto) (0-0.2) K/uL Immature Gran # (Auto) (0.00-0.02) K/uL Blood Smear Review PT (9.0-12.0) Seconds INR (0.9-1.1) APTT (21.0-31.0) Seconds PTT Ratio Sample Site POC pH (7.35-7.45) POC pCO2 (35-46) mmHg POC pO2 (80-95) mmHg POC HCO3 (19-24) ashley/L POC Base Excess (-9-1.8) ashley/L ABG pH (Temp Correct) (7.35-7.45) ABG pCO2 (Temp Corrct (35-46) mmHg POC ABG pO2 at Pt Temp POC ABG O2 Sat (90-95) % Piotr Test VBG pH (7.36-7.41) VBG pCO2 (38-50) mmHg VBG pO2 mmHg VBG HCO3 mmol/L VBG O2 Saturation % VBG Base Excess mEq/L Barometric Pressure mm/Hg O2 Delivery Device POC O2 Rate Minute Ventilation POC FiO2 % Tidal Volume PEEP POC Sodium (135-144) mmol/L Sodium (136-145) mmol/L POC Potassium (3.3-5.0) mmol/L Potassium (3.5-5.1) mmol/L POC Chloride (101-112) mmol/L Chloride (98-107) mmol/L Carbon Dioxide (21-32) mmol/L POC Total CO2 (24-31) mmol/L Anion Gap (3-11) POC Anion Gap (16-25) mmol/L POC BUN (7-18) mg/dl BUN (7-18) mg/dl Creatinine (0.6-1.4) mg/dl POC Creatinine (0.6-1.3) mg/dl Est Cr Clr Drug Dosing ml/min Est GFR ( Amer) Est GFR (Non-Af Amer) BUN/Creatinine Ratio (10-20) Glucose (70-99) mg/dl POC Glucose (other) 155 H 179 H (70-99) mg/dl Estimat Average Glucose mg/dl Hemoglobin A1c (4.5-5.6) % Lactate (0.4-2.0) mmol/L Calcium (8.5-10.1) mg/dl POC Ioniz Calcium Sukhdeep (1.12-1.32) mmol/l Ionized Calcium (1.12-1.32) mmol/L Phosphorus (2.5-4.9) mg/dl Magnesium (1.8-2.4) mg/dl Total Bilirubin (0.2-1) mg/dl Direct Bilirubin (0-0.2) mg/dl GGT AST (15-37) U/L ALT (12-78) U/L Alkaline Phosphatase (45-117) U/L Lactate Dehydrogenase (87-241) U/L CK-MB (CK-2) (0.5-3.6) ng/ml Troponin I (0-0.045) ng/ml Total Protein (6.4-8.2) gm/dl Albumin (3.4-5.0) gm/dl Globulin (2.5-4.0) gm/dl Albumin/Globulin Ratio (0.9-2) Amylase (25-115) U/L Lipase (73-393) U/L Procalcitonin (0-0.5) ng/ml Urine Color Urine Appearance (Clear) Urine pH (4.5-7.5) Ur Specific [place] (1.000-1.030) Urine Protein (Negative) Urine Glucose (UA) (Negative) Urine Ketones (Negative) Urine Blood (Negative) Urine Nitrite (Negative) Urine Bilirubin (Negative) Urine Urobilinogen (Negative) Ur Leukocyte Esterase (Negative) Urine WBC (Auto) (0-5) /hpf Urine RBC (Auto) (0-4) /hpf U Hyaline Cast (Auto) (0-5) /lpf U Epithel Cells (Auto) (0-5) /lpf Urine Bacteria (Auto) (Negative) Ur Renal Epithelial Cell Granular Casts (0) /lpf WBC Casts (0) /lpf Urine Yeast Nasal Screen MRSA (PCR) Negative (Negative) COVID-19 Eval Order SARS-CoV-2, RNA, NAAT (NEGATIVE) Blood Type Blood Type Recheck Antibody Screen Crossmatch 12/23/20 12/23/20 12/23/20 Range/Units 22:51 22:51 22:34 WBC 36.51 H* D (4.8-10.8) K/uL RBC 6.06 (4.7-6.1) M/uL Hgb 17.8 (14.0-18.0) g/dL POC Hgb (14.0-18.0) g/dl Hct 54.4 H (42-52) % POC Hct (42-52) % MCV 89.8 (80-100) fL MCH 29.4 (25-34) pg MCHC 32.7 (32-36) g/dL RDW Std Deviation 48.4 H (36.4-46.3) fL RDW Coeff of Kev 14.7 H (11.5-14.5) % Plt Count 226 (130-400) K/uL MPV 12.6 H (7.4-10.4) fL Immature Gran % (Auto) 1.0 % Neut % (Auto) 89.1 % Lymph % (Auto) 6.8 % [place] % (Auto) 2.9 % Eos % (Auto) 0.1 % Baso % (Auto) 0.1 % Neut # (Auto) 32.51 H (1.4-6.5) K/uL Lymph # (Auto) 2.49 (1.2-3.4) K/uL [place] # (Auto) 1.05 H (0.11-0.59) K/uL Eos # (Auto) 0.04 (0-0.5) K/uL Baso # (Auto) 0.04 (0-0.2) K/uL Immature Gran # (Auto) 0.38 H (0.00-0.02) K/uL Blood Smear Review PT (9.0-12.0) Seconds INR (0.9-1.1) APTT (21.0-31.0) Seconds PTT Ratio Sample Site POC pH (7.35-7.45) POC pCO2 (35-46) mmHg POC pO2 (80-95) mmHg POC HCO3 (19-24) ashley/L POC Base Excess (-9-1.8) ashley/L ABG pH (Temp Correct) (7.35-7.45) ABG pCO2 (Temp Corrct (35-46) mmHg POC ABG pO2 at Pt Temp POC ABG O2 Sat (90-95) % Piotr Test VBG pH (7.36-7.41) VBG pCO2 (38-50) mmHg VBG pO2 mmHg VBG HCO3 mmol/L VBG O2 Saturation % VBG Base Excess mEq/L Barometric Pressure mm/Hg O2 Delivery Device POC O2 Rate Minute Ventilation POC FiO2 % Tidal Volume PEEP POC Sodium (135-144) mmol/L Sodium 139 (136-145) mmol/L POC Potassium (3.3-5.0) mmol/L Potassium 4.1 D (3.5-5.1) mmol/L POC Chloride (101-112) mmol/L Chloride 105 (98-107) mmol/L Carbon Dioxide 26 (21-32) mmol/L POC Total CO2 (24-31) mmol/L Anion Gap 8.0 (3-11) POC Anion Gap (16-25) mmol/L POC BUN (7-18) mg/dl BUN 18 (7-18) mg/dl Creatinine 1.73 H (0.6-1.4) mg/dl POC Creatinine (0.6-1.3) mg/dl Est Cr Clr Drug Dosing 63.0 ml/min Est GFR ( Amer) 49.0 Est GFR (Non-Af Amer) 42.3 BUN/Creatinine Ratio 10.6 (10-20) Glucose 246 H (70-99) mg/dl POC Glucose (other) 262 H (70-99) mg/dl Estimat Average Glucose mg/dl Hemoglobin A1c (4.5-5.6) % Lactate (0.4-2.0) mmol/L Calcium 8.5 (8.5-10.1) mg/dl POC Ioniz Calcium Sukhdeep (1.12-1.32) mmol/l Ionized Calcium (1.12-1.32) mmol/L Phosphorus 4.8 (2.5-4.9) mg/dl Magnesium 2.2 (1.8-2.4) mg/dl Total Bilirubin 0.5 (0.2-1) mg/dl Direct Bilirubin 0.2 (0-0.2) mg/dl GGT AST 253 H (15-37) U/L ALT 279 H (12-78) U/L Alkaline Phosphatase 130 H (45-117) U/L Lactate Dehydrogenase (87-241) U/L CK-MB (CK-2) (0.5-3.6) ng/ml Troponin I (0-0.045) ng/ml Total Protein 7.2 (6.4-8.2) gm/dl Albumin 3.0 L (3.4-5.0) gm/dl Globulin (2.5-4.0) gm/dl Albumin/Globulin Ratio (0.9-2) Amylase (25-115) U/L Lipase (73-393) U/L Procalcitonin (0-0.5) ng/ml Urine Color Urine Appearance (Clear) Urine pH (4.5-7.5) Ur Specific [place] (1.000-1.030) Urine Protein (Negative) Urine Glucose (UA) (Negative) Urine Ketones (Negative) Urine Blood (Negative) Urine Nitrite (Negative) Urine Bilirubin (Negative) Urine Urobilinogen (Negative) Ur Leukocyte Esterase (Negative) Urine WBC (Auto) (0-5) /hpf Urine RBC (Auto) (0-4) /hpf U Hyaline Cast (Auto) (0-5) /lpf U Epithel Cells (Auto) (0-5) /lpf Urine Bacteria (Auto) (Negative) Ur Renal Epithelial Cell Granular Casts (0) /lpf WBC Casts (0) /lpf Urine Yeast Nasal Screen MRSA (PCR) (Negative) COVID-19 Eval Order SARS-CoV-2, RNA, NAAT (NEGATIVE) Blood Type Blood Type Recheck Antibody Screen Crossmatch 12/23/20 12/23/20 12/23/20 Range/Units 22:28 20:23 19:41 WBC (4.8-10.8) K/uL RBC (4.7-6.1) M/uL Hgb (14.0-18.0) g/dL POC Hgb 19.0 H 17.7 (14.0-18.0) g/dl Hct (42-52) % POC Hct 56 H 52 (42-52) % MCV (80-100) fL MCH (25-34) pg MCHC (32-36) g/dL RDW Std Deviation (36.4-46.3) fL RDW Coeff of Kev (11.5-14.5) % Plt Count (130-400) K/uL MPV (7.4-10.4) fL Immature Gran % (Auto) % Neut % (Auto) % Lymph % (Auto) % [place] % (Auto) % Eos % (Auto) % Baso % (Auto) % Neut # (Auto) (1.4-6.5) K/uL Lymph # (Auto) (1.2-3.4) K/uL [place] # (Auto) (0.11-0.59) K/uL Eos # (Auto) (0-0.5) K/uL Baso # (Auto) (0-0.2) K/uL Immature Gran # (Auto) (0.00-0.02) K/uL Blood Smear Review PT (9.0-12.0) Seconds INR (0.9-1.1) APTT (21.0-31.0) Seconds PTT Ratio Sample Site R Radial POC pH 7.25 L 7.12 L* (7.35-7.45) POC pCO2 63 H 82 H (35-46) mmHg POC pO2 93 80 (80-95) mmHg POC HCO3 28 H 26 H (19-24) ashley/L POC Base Excess 0.0 -3.0 (-9-1.8) ashley/L ABG pH (Temp Correct) 7.295 L (7.35-7.45) ABG pCO2 (Temp Corrct 55 H (35-46) mmHg POC ABG pO2 at Pt Temp 76 POC ABG O2 Sat 95.0 90.0 (90-95) % Piotr Test Pass VBG pH (7.36-7.41) VBG pCO2 (38-50) mmHg VBG pO2 mmHg VBG HCO3 mmol/L VBG O2 Saturation % VBG Base Excess mEq/L Barometric Pressure mm/Hg O2 Delivery Device Ventilator POC O2 Rate 18 Minute Ventilation 9.01 POC FiO2 90 % Tidal Volume 500 PEEP 10 POC Sodium 136 139 (135-144) mmol/L Sodium (136-145) mmol/L POC Potassium 4.0 3.6 (3.3-5.0) mmol/L Potassium (3.5-5.1) mmol/L POC Chloride (101-112) mmol/L Chloride (98-107) mmol/L Carbon Dioxide (21-32) mmol/L POC Total CO2 30 29 (24-31) mmol/L Anion Gap (3-11) POC Anion Gap (16-25) mmol/L POC BUN (7-18) mg/dl BUN (7-18) mg/dl Creatinine (0.6-1.4) mg/dl POC Creatinine (0.6-1.3) mg/dl Est Cr Clr Drug Dosing ml/min Est GFR ( Amer) Est GFR (Non-Af Amer) BUN/Creatinine Ratio (10-20) Glucose (70-99) mg/dl POC Glucose (other) (70-99) mg/dl Estimat Average Glucose mg/dl Hemoglobin A1c (4.5-5.6) % Lactate 4.8 H* (0.4-2.0) mmol/L Calcium (8.5-10.1) mg/dl POC Ioniz Calcium Sukhdeep (1.12-1.32) mmol/l Ionized Calcium (1.12-1.32) mmol/L Phosphorus (2.5-4.9) mg/dl Magnesium (1.8-2.4) mg/dl Total Bilirubin (0.2-1) mg/dl Direct Bilirubin (0-0.2) mg/dl GGT AST (15-37) U/L ALT (12-78) U/L Alkaline Phosphatase (45-117) U/L Lactate Dehydrogenase (87-241) U/L CK-MB (CK-2) (0.5-3.6) ng/ml Troponin I (0-0.045) ng/ml Total Protein (6.4-8.2) gm/dl Albumin (3.4-5.0) gm/dl Globulin (2.5-4.0) gm/dl Albumin/Globulin Ratio (0.9-2) Amylase (25-115) U/L Lipase (73-393) U/L Procalcitonin (0-0.5) ng/ml Urine Color Urine Appearance (Clear) Urine pH (4.5-7.5) Ur Specific [place] (1.000-1.030) Urine Protein (Negative) Urine Glucose (UA) (Negative) Urine Ketones (Negative) Urine Blood (Negative) Urine Nitrite (Negative) Urine Bilirubin (Negative) Urine Urobilinogen (Negative) Ur Leukocyte Esterase (Negative) Urine WBC (Auto) (0-5) /hpf Urine RBC (Auto) (0-4) /hpf U Hyaline Cast (Auto) (0-5) /lpf U Epithel Cells (Auto) (0-5) /lpf Urine Bacteria (Auto) (Negative) Ur Renal Epithelial Cell Granular Casts (0) /lpf WBC Casts (0) /lpf Urine Yeast Nasal Screen MRSA (PCR) (Negative) COVID-19 Eval Order SARS-CoV-2, RNA, NAAT (NEGATIVE) Blood Type Blood Type Recheck Antibody Screen Crossmatch 12/23/20 12/23/20 12/23/20 Range/Units 18:40 18:40 18:37 WBC (4.8-10.8) K/uL RBC (4.7-6.1) M/uL Hgb (14.0-18.0) g/dL POC Hgb 17.7 (14.0-18.0) g/dl Hct (42-52) % POC Hct 52 (42-52) % MCV (80-100) fL MCH (25-34) pg MCHC (32-36) g/dL RDW Std Deviation (36.4-46.3) fL RDW Coeff of Kev (11.5-14.5) % Plt Count (130-400) K/uL MPV (7.4-10.4) fL Immature Gran % (Auto) % Neut % (Auto) % Lymph % (Auto) % [place] % (Auto) % Eos % (Auto) % Baso % (Auto) % Neut # (Auto) (1.4-6.5) K/uL Lymph # (Auto) (1.2-3.4) K/uL [place] # (Auto) (0.11-0.59) K/uL Eos # (Auto) (0-0.5) K/uL Baso # (Auto) (0-0.2) K/uL Immature Gran # (Auto) (0.00-0.02) K/uL Blood Smear Review PT (9.0-12.0) Seconds INR (0.9-1.1) APTT (21.0-31.0) Seconds PTT Ratio Sample Site POC pH (7.35-7.45) POC pCO2 (35-46) mmHg POC pO2 (80-95) mmHg POC HCO3 (19-24) ashley/L POC Base Excess (-9-1.8) ashley/L ABG pH (Temp Correct) (7.35-7.45) ABG pCO2 (Temp Corrct (35-46) mmHg POC ABG pO2 at Pt Temp POC ABG O2 Sat (90-95) % Piotr Test VBG pH (7.36-7.41) VBG pCO2 (38-50) mmHg VBG pO2 mmHg VBG HCO3 mmol/L VBG O2 Saturation % VBG Base Excess mEq/L Barometric Pressure mm/Hg O2 Delivery Device POC O2 Rate Minute Ventilation POC FiO2 % Tidal Volume PEEP POC Sodium 141 (135-144) mmol/L Sodium (136-145) mmol/L POC Potassium 2.8 L (3.3-5.0) mmol/L Potassium (3.5-5.1) mmol/L POC Chloride 98 L (101-112) mmol/L Chloride (98-107) mmol/L Carbon Dioxide (21-32) mmol/L POC Total CO2 27 (24-31) mmol/L Anion Gap (3-11) POC Anion Gap 20.0 (16-25) mmol/L POC BUN 16 (7-18) mg/dl BUN (7-18) mg/dl Creatinine (0.6-1.4) mg/dl POC Creatinine 1.3 (0.6-1.3) mg/dl Est Cr Clr Drug Dosing ml/min Est GFR ( Amer) Est GFR (Non-Af Amer) BUN/Creatinine Ratio (10-20) Glucose (70-99) mg/dl POC Glucose (other) 241 H (70-99) mg/dl Estimat Average Glucose mg/dl Hemoglobin A1c (4.5-5.6) % Lactate (0.4-2.0) mmol/L Calcium (8.5-10.1) mg/dl POC Ioniz Calcium Sukhdeep 1.10 L (1.12-1.32) mmol/l Ionized Calcium (1.12-1.32) mmol/L Phosphorus (2.5-4.9) mg/dl Magnesium (1.8-2.4) mg/dl Total Bilirubin (0.2-1) mg/dl Direct Bilirubin (0-0.2) mg/dl GGT AST (15-37) U/L ALT (12-78) U/L Alkaline Phosphatase (45-117) U/L Lactate Dehydrogenase (87-241) U/L CK-MB (CK-2) (0.5-3.6) ng/ml Troponin I (0-0.045) ng/ml Total Protein (6.4-8.2) gm/dl Albumin (3.4-5.0) gm/dl Globulin (2.5-4.0) gm/dl Albumin/Globulin Ratio (0.9-2) Amylase (25-115) U/L Lipase (73-393) U/L Procalcitonin (0-0.5) ng/ml Urine Color Urine Appearance (Clear) Urine pH (4.5-7.5) Ur Specific [place] (1.000-1.030) Urine Protein (Negative) Urine Glucose (UA) (Negative) Urine Ketones (Negative) Urine Blood (Negative) Urine Nitrite (Negative) Urine Bilirubin (Negative) Urine Urobilinogen (Negative) Ur Leukocyte Esterase (Negative) Urine WBC (Auto) (0-5) /hpf Urine RBC (Auto) (0-4) /hpf U Hyaline Cast (Auto) (0-5) /lpf U Epithel Cells (Auto) (0-5) /lpf Urine Bacteria (Auto) (Negative) Ur Renal Epithelial Cell Granular Casts (0) /lpf WBC Casts (0) /lpf Urine Yeast Nasal Screen MRSA (PCR) (Negative) COVID-19 Eval Order Covid19 IDNow [facility] SARS-CoV-2, RNA, NAAT NEGATIVE (NEGATIVE) Blood Type Blood Type Recheck Antibody Screen Crossmatch 12/23/20 12/23/20 12/23/20 Range/Units 18:30 18:30 18:30 WBC 17.48 H (4.8-10.8) K/uL RBC 5.65 (4.7-6.1) M/uL Hgb 16.3 (14.0-18.0) g/dL POC Hgb (14.0-18.0) g/dl Hct 52.5 H (42-52) % POC Hct (42-52) % MCV 92.9 (80-100) fL MCH 28.8 (25-34) pg MCHC 31.0 L (32-36) g/dL RDW Std Deviation 49.7 H (36.4-46.3) fL RDW Coeff of Kev 14.7 H (11.5-14.5) % Plt Count 238 (130-400) K/uL MPV 13.3 H (7.4-10.4) fL Immature Gran % (Auto) 5.0 % Neut % (Auto) 55.6 % Lymph % (Auto) 31.8 % [place] % (Auto) 6.0 % Eos % (Auto) 1.3 % Baso % (Auto) 0.3 % Neut # (Auto) 9.72 H (1.4-6.5) K/uL Lymph # (Auto) 5.55 H (1.2-3.4) K/uL [place] # (Auto) 1.05 H (0.11-0.59) K/uL Eos # (Auto) 0.23 (0-0.5) K/uL Baso # (Auto) 0.06 (0-0.2) K/uL Immature Gran # (Auto) 0.87 H (0.00-0.02) K/uL Blood Smear Review Pending PT (9.0-12.0) Seconds INR (0.9-1.1) APTT (21.0-31.0) Seconds PTT Ratio Sample Site POC pH (7.35-7.45) POC pCO2 (35-46) mmHg POC pO2 (80-95) mmHg POC HCO3 (19-24) ashley/L POC Base Excess (-9-1.8) ashley/L ABG pH (Temp Correct) (7.35-7.45) ABG pCO2 (Temp Corrct (35-46) mmHg POC ABG pO2 at Pt Temp POC ABG O2 Sat (90-95) % Piotr Test VBG pH 6.97 L (7.36-7.41) VBG pCO2 124 H (38-50) mmHg VBG pO2 49 mmHg VBG HCO3 28 mmol/L VBG O2 Saturation 66.9 % VBG Base Excess -7.9 mEq/L Barometric Pressure 724.9 mm/Hg O2 Delivery Device POC O2 Rate Minute Ventilation POC FiO2 % Tidal Volume PEEP POC Sodium (135-144) mmol/L Sodium (136-145) mmol/L POC Potassium (3.3-5.0) mmol/L Potassium (3.5-5.1) mmol/L POC Chloride (101-112) mmol/L Chloride (98-107) mmol/L Carbon Dioxide (21-32) mmol/L POC Total CO2 (24-31) mmol/L Anion Gap (3-11) POC Anion Gap (16-25) mmol/L POC BUN (7-18) mg/dl BUN (7-18) mg/dl Creatinine (0.6-1.4) mg/dl POC Creatinine (0.6-1.3) mg/dl Est Cr Clr Drug Dosing ml/min Est GFR ( Amer) Est GFR (Non-Af Amer) BUN/Creatinine Ratio (10-20) Glucose (70-99) mg/dl POC Glucose (other) (70-99) mg/dl Estimat Average Glucose mg/dl Hemoglobin A1c (4.5-5.6) % Lactate 10.6 H* (0.4-2.0) mmol/L Calcium (8.5-10.1) mg/dl POC Ioniz Calcium Sukhdeep (1.12-1.32) mmol/l Ionized Calcium (1.12-1.32) mmol/L Phosphorus (2.5-4.9) mg/dl Magnesium (1.8-2.4) mg/dl Total Bilirubin (0.2-1) mg/dl Direct Bilirubin (0-0.2) mg/dl GGT AST (15-37) U/L ALT (12-78) U/L Alkaline Phosphatase (45-117) U/L Lactate Dehydrogenase (87-241) U/L CK-MB (CK-2) (0.5-3.6) ng/ml Troponin I (0-0.045) ng/ml Total Protein (6.4-8.2) gm/dl Albumin (3.4-5.0) gm/dl Globulin (2.5-4.0) gm/dl Albumin/Globulin Ratio (0.9-2) Amylase (25-115) U/L Lipase (73-393) U/L Procalcitonin (0-0.5) ng/ml Urine Color Urine Appearance (Clear) Urine pH (4.5-7.5) Ur Specific [place] (1.000-1.030) Urine Protein (Negative) Urine Glucose (UA) (Negative) Urine Ketones (Negative) Urine Blood (Negative) Urine Nitrite (Negative) Urine Bilirubin (Negative) Urine Urobilinogen (Negative) Ur Leukocyte Esterase (Negative) Urine WBC (Auto) (0-5) /hpf Urine RBC (Auto) (0-4) /hpf U Hyaline Cast (Auto) (0-5) /lpf U Epithel Cells (Auto) (0-5) /lpf Urine Bacteria (Auto) (Negative) Ur Renal Epithelial Cell Granular Casts (0) /lpf WBC Casts (0) /lpf Urine Yeast Nasal Screen MRSA (PCR) (Negative) COVID-19 Eval Order SARS-CoV-2, RNA, NAAT (NEGATIVE) Blood Type Blood Type Recheck Antibody Screen Crossmatch 12/23/20 12/23/20 12/23/20 Range/Units 18:30 18:30 14:30 WBC (4.8-10.8) K/uL RBC (4.7-6.1) M/uL Hgb (14.0-18.0) g/dL POC Hgb (14.0-18.0) g/dl Hct (42-52) % POC Hct (42-52) % MCV (80-100) fL MCH (25-34) pg MCHC (32-36) g/dL RDW Std Deviation (36.4-46.3) fL RDW Coeff of Kev (11.5-14.5) % Plt Count (130-400) K/uL MPV (7.4-10.4) fL Immature Gran % (Auto) % Neut % (Auto) % Lymph % (Auto) % [place] % (Auto) % Eos % (Auto) % Baso % (Auto) % Neut # (Auto) (1.4-6.5) K/uL Lymph # (Auto) (1.2-3.4) K/uL [place] # (Auto) (0.11-0.59) K/uL Eos # (Auto) (0-0.5) K/uL Baso # (Auto) (0-0.2) K/uL Immature Gran # (Auto) (0.00-0.02) K/uL Blood Smear Review PT (9.0-12.0) Seconds INR (0.9-1.1) APTT (21.0-31.0) Seconds PTT Ratio Sample Site POC pH (7.35-7.45) POC pCO2 (35-46) mmHg POC pO2 (80-95) mmHg POC HCO3 (19-24) ashley/L POC Base Excess (-9-1.8) ashley/L ABG pH (Temp Correct) (7.35-7.45) ABG pCO2 (Temp Corrct (35-46) mmHg POC ABG pO2 at Pt Temp POC ABG O2 Sat (90-95) % Piotr Test VBG pH (7.36-7.41) VBG pCO2 (38-50) mmHg VBG pO2 mmHg VBG HCO3 mmol/L VBG O2 Saturation % VBG Base Excess mEq/L Barometric Pressure mm/Hg O2 Delivery Device POC O2 Rate Minute Ventilation POC FiO2 % Tidal Volume PEEP POC Sodium (135-144) mmol/L Sodium 142 (136-145) mmol/L POC Potassium (3.3-5.0) mmol/L Potassium 2.9 L (3.5-5.1) mmol/L POC Chloride (101-112) mmol/L Chloride 102 (98-107) mmol/L Carbon Dioxide 26 (21-32) mmol/L POC Total CO2 (24-31) mmol/L Anion Gap 14.0 H (3-11) POC Anion Gap (16-25) mmol/L POC BUN (7-18) mg/dl BUN 15 (7-18) mg/dl Creatinine 1.62 H (0.6-1.4) mg/dl POC Creatinine (0.6-1.3) mg/dl Est Cr Clr Drug Dosing 67.3 ml/min Est GFR ( Amer) 53.0 Est GFR (Non-Af Amer) 45.8 BUN/Creatinine Ratio 9.0 L (10-20) Glucose 234 H (70-99) mg/dl POC Glucose (other) (70-99) mg/dl Estimat Average Glucose mg/dl Hemoglobin A1c (4.5-5.6) % Lactate (0.4-2.0) mmol/L Calcium 8.6 (8.5-10.1) mg/dl POC Ioniz Calcium Sukhdeep (1.12-1.32) mmol/l Ionized Calcium (1.12-1.32) mmol/L Phosphorus (2.5-4.9) mg/dl Magnesium 2.9 H (1.8-2.4) mg/dl Total Bilirubin 0.2 (0.2-1) mg/dl Direct Bilirubin (0-0.2) mg/dl GGT Pending AST 179 H (15-37) U/L ALT 240 H (12-78) U/L Alkaline Phosphatase 145 H (45-117) U/L Lactate Dehydrogenase (87-241) U/L CK-MB (CK-2) (0.5-3.6) ng/ml Troponin I 0.107 H* (0-0.045) ng/ml Total Protein 6.8 (6.4-8.2) gm/dl Albumin 2.8 L (3.4-5.0) gm/dl Globulin 4.0 (2.5-4.0) gm/dl Albumin/Globulin Ratio 0.7 L (0.9-2) Amylase (25-115) U/L Lipase (73-393) U/L Procalcitonin (0-0.5) ng/ml Urine Color Urine Appearance (Clear) Urine pH (4.5-7.5) Ur Specific [place] (1.000-1.030) Urine Protein (Negative) Urine Glucose (UA) (Negative) Urine Ketones (Negative) Urine Blood (Negative) Urine Nitrite (Negative) Urine Bilirubin (Negative) Urine Urobilinogen (Negative) Ur Leukocyte Esterase (Negative) Urine WBC (Auto) (0-5) /hpf Urine RBC (Auto) (0-4) /hpf U Hyaline Cast (Auto) (0-5) /lpf U Epithel Cells (Auto) (0-5) /lpf Urine Bacteria (Auto) (Negative) Ur Renal Epithelial Cell Granular Casts (0) /lpf WBC Casts (0) /lpf Urine Yeast Nasal Screen MRSA (PCR) (Negative) COVID-19 Eval Order SARS-CoV-2, RNA, NAAT (NEGATIVE) Blood Type O Positive Blood Type Recheck Antibody Screen NEGATIVE Crossmatch See Detail 12/23/20 12/23/20 Range/Units 14:30 14:30 WBC (4.8-10.8) K/uL RBC (4.7-6.1) M/uL Hgb (14.0-18.0) g/dL POC Hgb (14.0-18.0) g/dl Hct (42-52) % POC Hct (42-52) % MCV (80-100) fL MCH (25-34) pg MCHC (32-36) g/dL RDW Std Deviation (36.4-46.3) fL RDW Coeff of Kev (11.5-14.5) % Plt Count (130-400) K/uL MPV (7.4-10.4) fL Immature Gran % (Auto) % Neut % (Auto) % Lymph % (Auto) % [place] % (Auto) % Eos % (Auto) % Baso % (Auto) % Neut # (Auto) (1.4-6.5) K/uL Lymph # (Auto) (1.2-3.4) K/uL [place] # (Auto) (0.11-0.59) K/uL Eos # (Auto) (0-0.5) K/uL Baso # (Auto) (0-0.2) K/uL Immature Gran # (Auto) (0.00-0.02) K/uL Blood Smear Review PT 10.9 (9.0-12.0) Seconds INR 1.1 (0.9-1.1) APTT 28.1 (21.0-31.0) Seconds PTT Ratio 1.1 Sample Site POC pH (7.35-7.45) POC pCO2 (35-46) mmHg POC pO2 (80-95) mmHg POC HCO3 (19-24) ashley/L POC Base Excess (-9-1.8) ashley/L ABG pH (Temp Correct) (7.35-7.45) ABG pCO2 (Temp Corrct (35-46) mmHg POC ABG pO2 at Pt Temp POC ABG O2 Sat (90-95) % Piotr Test VBG pH (7.36-7.41) VBG pCO2 (38-50) mmHg VBG pO2 mmHg VBG HCO3 mmol/L VBG O2 Saturation % VBG Base Excess mEq/L Barometric Pressure mm/Hg O2 Delivery Device POC O2 Rate Minute Ventilation POC FiO2 % Tidal Volume PEEP POC Sodium (135-144) mmol/L Sodium (136-145) mmol/L POC Potassium (3.3-5.0) mmol/L Potassium (3.5-5.1) mmol/L POC Chloride (101-112) mmol/L Chloride (98-107) mmol/L Carbon Dioxide (21-32) mmol/L POC Total CO2 (24-31) mmol/L Anion Gap (3-11) POC Anion Gap (16-25) mmol/L POC BUN (7-18) mg/dl BUN (7-18) mg/dl Creatinine (0.6-1.4) mg/dl POC Creatinine (0.6-1.3) mg/dl Est Cr Clr Drug Dosing ml/min Est GFR ( Amer) Est GFR (Non-Af Amer) BUN/Creatinine Ratio (10-20) Glucose (70-99) mg/dl POC Glucose (other) (70-99) mg/dl Estimat Average Glucose mg/dl Hemoglobin A1c (4.5-5.6) % Lactate (0.4-2.0) mmol/L Calcium (8.5-10.1) mg/dl POC Ioniz Calcium Sukhdeep (1.12-1.32) mmol/l Ionized Calcium (1.12-1.32) mmol/L Phosphorus (2.5-4.9) mg/dl Magnesium (1.8-2.4) mg/dl Total Bilirubin (0.2-1) mg/dl Direct Bilirubin (0-0.2) mg/dl GGT AST (15-37) U/L ALT (12-78) U/L Alkaline Phosphatase (45-117) U/L Lactate Dehydrogenase (87-241) U/L CK-MB (CK-2) (0.5-3.6) ng/ml Troponin I (0-0.045) ng/ml Total Protein (6.4-8.2) gm/dl Albumin (3.4-5.0) gm/dl Globulin (2.5-4.0) gm/dl Albumin/Globulin Ratio (0.9-2) Amylase (25-115) U/L Lipase (73-393) U/L Procalcitonin 0.15 (0-0.5) ng/ml Urine Color Urine Appearance (Clear) Urine pH (4.5-7.5) Ur Specific [place] (1.000-1.030) Urine Protein (Negative) Urine Glucose (UA) (Negative) Urine Ketones (Negative) Urine Blood (Negative) Urine Nitrite (Negative) Urine Bilirubin (Negative) Urine Urobilinogen (Negative) Ur Leukocyte Esterase (Negative) Urine WBC (Auto) (0-5) /hpf Urine RBC (Auto) (0-4) /hpf U Hyaline Cast (Auto) (0-5) /lpf U Epithel Cells (Auto) (0-5) /lpf Urine Bacteria (Auto) (Negative) Ur Renal Epithelial Cell Granular Casts (0) /lpf WBC Casts (0) /lpf Urine Yeast Nasal Screen MRSA (PCR) (Negative) COVID-19 Eval Order SARS-CoV-2, RNA, NAAT (NEGATIVE) Blood Type Blood Type Recheck Antibody Screen Crossmatch Resident Activity Tracking Resident Involvement: Resident Care Provided Care Provided: Adult Hospital Medicine
[2020-12-24] MEDS ORDERED: LEVOTHYROXINE SODIUM 200 MCG in SODIUM CHLORIDE 0.9% 500 ML IV PRN (10:00)
--- NOTE | 2020-12-24 10:08 | Procedure Note ---
Procedure Note Date of Service Procedure date: December 24, 2020 Procedure: fiberoptic bronchoscopy Pre-procedure indication: Organ procurement bronchoscopy Post-procedure Diagnosis: same as above Prior to Procedure: Attending Staff: Deb Michele DO Description of Procedure: Fiberoptic bronchoscopy was performed via endotracheal tube. Bronchioalveolar lavage of the right lower and left lower lobe was performed. Findings included: Appearance of a swollen lymph node in the bronchus intermedius superior to the superior segment of the right lower bronchus (B6) , small amounts of bloody secretions and minimal mucous plugs suctioned from the bilateral lower lobes. Tissues appeared grossly normal lacking purulence and inflammation Complications: None Specimens: Bronchial washings sent for culture and Gram stain, fungal elements, AFB stain and culture, cell count differential. Estimated blood loss: Zero Coding CPT Codes Pulmonary/Thoracic - Pulmonary and Thoracic: 71380 Dx bronchoscopy/wash ([id number]) [facility] [place]odes (Charges) Pulmonary/Thoracic Procedure 1: Pulmonary and Thoracic: 11149 Dx bronchoscopy/wash (billing to organ procurement organization)
[2020-12-24] MEDS ORDERED: STAT IV Infusion **Titration per Protocol STA (11:21)
[2020-12-24] MEDS ORDERED: PHENYLEPHRINE HCL 20 MG in DEXTROSE 5% 500 ML IV SCH (11:30)
[2020-12-24 12:31] LABS: iSTAT Art Bld Gas pCO2 Correct 44 mmHg (35-46); iSTAT Art Bld Gas pH Corrected 7.354 (7.35-7.45); iSTAT Arterial Blood Gas HCO3 24 meg/L (19-24); iSTAT Arterial Blood Gas pCO2 44 mmHg (35-46); iSTAT Arterial Blood Gas pH 7.35 (7.35-7.45); iSTAT Arterial Blood Gas pO2 69 mmHg (80-95); iSTAT Arterial Blood Gas pO2 C 69; iSTAT Carbon Dioxide 26 mmol/L (24-31); iSTAT FiO2 70 %; iSTAT Hematocrit 50 % (42-52); iSTAT Potassium 3.6 mmol/L (3.3-5.0); iSTAT Site Art Line; iSTAT Sodium 140 mmol/L (135-144)
[2020-12-24] MEDS ORDERED: methylPREDNISolone 1,000 MG in DEXTROSE 5% 250 ML IV SCH (15:00)
[2020-12-24] MEDS ORDERED: HEPARIN (PORCINE) 1000 UNIT/ML 10 ML (CATH LAB USE ONLY) ONE (15:57)
[2020-12-24] MEDS ORDERED: fentaNYL citrate 100 MCG/2 ML VIAL ONE (15:57)
[2020-12-24] MEDS ORDERED: niCARdipine HCL INJ 2.5 MG/ML 10 ML AMP ONE (15:57)
[2020-12-24] MEDS ORDERED: NITROGLYCERIN/D5W 100MCG/ML 20ML SYR ONE (15:58)
[2020-12-24] MEDS ORDERED: MIDAZOLAM HCL 1 MG/ML 2ML VIAL ONE (15:58)
[2020-12-25] MEDS ORDERED: HEPARIN SOD (PORCINE) 1000 UNIT/ML ONE (03:03)
[2020-12-25] MEDS ORDERED: MANNITOL 25% 12.5 GM/50 ML VIAL IV ONE (03:03)
[2020-12-25] MEDS ORDERED: ALBUMIN HUMAN 5% 12.5 GM/250 ML VIAL IV ONE (03:04)
[2020-12-25] MEDS ORDERED: FUROSEMIDE 10 MG/ML 10 ML VIAL IV ONE (03:04)
[2020-12-25] MEDS ORDERED: ROCURONIUM BROMIDE 10 MG/ML 5 ML VIAL IV ONE (03:16)
--- NOTE | 2020-12-25 11:03 | Electrocardiogram Report ---
Test Reason : Blood Pressure : / mmHG Vent. Rate : 070 BPM Atrial Rate : 076 BPM P-R Int : 000 ms QRS Dur : 140 ms QT Int : 450 ms P-R-T Axes : 000 -46 251 degrees QTc Int : 486 ms Junctional rhythm vs AIVR Right bundle branch block Left anterior fascicular block Bifascicular block T wave abnormality, consider inferolateral ischemia Abnormal ECG No previous ECGs available Confirmed by Porter Strickland ([id number]) on 12/25/2020 11:03:20 AM Referred By: REFERRED SELF Confirmed By:Porter Strickland
--- NOTE | 2021-01-17 10:13 | Discharge Summary ---
Date of Service January 17, 2021 Admission HPI Per Admitting Provider The patient is a 60-year-old male with no known previous past medical history, who presented to the emergency department following a cardiac arrest in the field, as noted above. EMS was called, and was found to have a loss of pulse and asystole. CPR was begun and a supraglottic airway was established and an intraosseous line was placed. The patient was given 4 mg of epinephrine IV until there was return of spontaneous circulation, and then the patient was transported to the emergency department. Work-up in the emergency department included a CT scan of the head, which showed intracranial hemorrhage and brainstem herniation. [facility] was contacted, and felt that intervention would not be of value, and recommended conservative measures. Emergency department contacted the family, and medicine has been consulted to admit the intubated patient to the ICU for comfort measures, while waiting for remainder family to arrive, and [facility] has been consulted. Discharge Data Consultations 12/23/20 20:23 ED Decision to Admit Stat 12/23/20 22:10 Consult Case Management - Discharge Planning Routine Consult Export Sales Assistant Routine 12/24/20 02:58 Consult Cardiology Routine Hospital Course (1) Admission for end of life care: Date of Service December 24, 2020 Admission Date: December 23, 2020 Date and Time of Date of : 12/24/20 Time of : 07:20 PCOD Preliminary cause of : Brainstem herniation Contributing Factors (1) Brainstem herniation: (2) Intracranial hemorrhage: (3) Cardiac arrest: (4) Hypertension: (5) Sleep apnea: Hospital Course Hospital Course: Patient was admitted through the emergency department as a CODE BLUE he was found to have a significant intracranial hemorrhage and subsequent brainstem herniation and mild hydrocephalus. Patient was found to fulfill brain criteria at 0720 on December 24, 2020. Family has opted to proceed with organ donation. Summary Additional details: Please see critical care examination note on December 24, 2020 for brain examination criteria Additional Data Confirmation of : no respirations, pupils fixed and dilated and other (No spontaneous respirations on apnea testing) Family: at bedside Attending/PCP notified?: Yes Attending physician: Karen Urrutia, DO Was code activated?: No Autopsy requested?: No cattle examiner notified?: Yes Organ bank notified?: Yes Advance directives: No (2) Brainstem : (3) Intracranial hemorrhage: (4) Admitted to intensive care unit: (5) Cardiac arrest: (6) Brainstem herniation: (7) Aspiration pneumonia: (8) Metabolic acidosis: Coding Level of Care Code None Diagnoses Admission for end of life care Z51.5 Brainstem G93.82 Intracranial hemorrhage I62.9 Admitted to intensive care unit Z78.9 Cardiac arrest I46.9 Brainstem herniation G93.5 Aspiration pneumonia J69.0 Metabolic acidosis E87.2
== END 2020-12-24 13:05 | disposition expired | DRG 951 ==
LOC: ED 18:21 → 1E 21:11 → SUATTDRO 21:11 → 1E 21:36